=== PATIENT | female | born 1995 | race Two or more races ===

== ENCOUNTER 2025-02-24 12:47 | Observation (INO) | payer MEDICAID ==
--- NOTE | 2025-02-24 13:40 | DVH ---
BIOPHYSICAL PROFILE HISTORY: gdma2 TECHNIQUE: Multiple transabdominal real-time grayscale sonographic images through the gravid uterus of the fetus with duplex Doppler color flow and M-mode spectral analysis FINDINGS: BIOPHYSICAL PROFILE: breathing score: 2 movement score: 2 tone score: 2 Quantitative ZEKE score: 2 (ZEKE: 17.6 Cm.) Total score: 8 The cervix not well visualized. Single live fetus in cephalic presentation. heart rate 132 beats per minute. Posterior placenta without previa or abruption IMPRESSION: Biophysical profile score: 8
--- NOTE | 2025-02-25 13:50 | DVHDS2 ---
Physician Discharge Progress N Final Diagnosis: [id number] Operations or Procedures: Operations or Procedures nst reactive reviwed,sono Condition on Discharge: Good Disposition: Home Discharge Instructions: Diet: Regular Activity: No Restrictions, As Tolerated Medications: na Follow Up Care: Specialist: 3d Discharge Statement: "Patient was advised to return to the ER or call 911 if any headaches, dizziness, shortness of breath, chest pain, abdominal pain, bleeding, fevers, or worsening of medical condition. Patient was counseled about treatment plan, medications, possible side effects, patientverbalized understanding. All questions were answered to the best of my ability. This discharge took greater then 30 minutes in planning, reviewing documentati on, counseling the patient, and discussing with other team members." Visit Coding OBGYN Date of Service: Feb 24, 2025 Billing Provider: WILBER MOREJON DO ANCHOR TACKER Common Visit Codes: [id number] OBS CARE (HIGH) ANCHOR TACKER Procedure Codes: 41610-71- NON-STRESS TEST WILBER MOREJON DO Feb 25, 2025 13:50
== END 2025-02-24 14:03 | disposition home or self-care (01) ==
LOC: LDRP 12:47 → UNDOADMOB 12:47 → LDRP 12:56
PROVIDERS: ADMIT Obstetrics & Gynecology; ATTEND Obstetrics & Gynecology
DX: O24.419 Gestational diabetes mellitus in pregnancy, unspecified control (principal); Z3A.32 32 weeks gestation of pregnancy; Z79.899 Other long term (current) drug therapy
CPT/HCPCS: 59025; 76819; 81002; 82948; G0378

== ENCOUNTER 2025-02-28 20:02 | Observation (INO) | payer MEDICAID ==
--- NOTE | 2025-02-28 20:53 | DVH ---
BIOPHYSICAL PROFILE HISTORY: GDMA2 TECHNIQUE: Multiple transabdominal real-time grayscale sonographic images through the gravid uterus of the fetus with duplex Doppler color flow and M-mode spectral analysis FINDINGS: BIOPHYSICAL PROFILE: breathing score: 2 movement score: 2 tone score: 2 Quantitative ZEKE score: 2 (ZEKE: 17.53 Cm.) Total score: 8/8 The cervix 3.00 Single live fetus in vertex presentation. heart rate 160 beats per minute. Posterior Grade 2-3 placenta without previa or abruption Single live fetus at 32 weeks 4 days Biophysical profile score 8/8 corresponding to an RAGHU of 08/22/2024 IMPRESSION: 1. Biophysical profile score: 8/8
--- NOTE | 2025-03-01 05:27 | DVHDS2 ---
Physician Discharge Progress N Final Diagnosis: GDMA2 Operations or Procedures: Operations or Procedures NST/BPP ZEKE all WNL Condition on Discharge: Stable Disposition: Home Discharge Instructions: Diet: Consistent carbohydrate Activity: No Restrictions, As Tolerated Follow Up/Referral: as scheduled Medications: NA Follow Up Care: Discharge Statement: "Patient was advised to return to the ER or call 911 if any headaches, dizziness, shortness of breath, chest pain, abdominal pain, bleeding, fevers, or worsening of medical condition. Patient was counseled about treatment plan, medications, possible side effects, patientverbalized understanding. All questions were answered to the best of my ability. This discharge took greater then 30 minutes in planning, reviewing documentation, counseling the patient, and discussing with other team members." Visit Coding OBGYN Date of Service: Mar 01, 2025 Billing Provider: ARI JORGE DO EMPLOYMENT COORDINATOR Common Visit Codes: 99224-JVP/OBS SAME DATE (HIGH) EMPLOYMENT COORDINATOR Procedure Codes: 58924-53- NON-STRESS TEST ARI JORGE DO Mar 01, 2025 05:27
== END 2025-02-28 21:35 | disposition home or self-care (01) ==
LOC: LDRP 20:02
PROVIDERS: ADMIT Obstetrics & Gynecology; ATTEND Obstetrics & Gynecology
DX: O24.419 Gestational diabetes mellitus in pregnancy, unspecified control (principal); Z3A.32 32 weeks gestation of pregnancy; Z98.890 Other specified postprocedural states; Z79.899 Other long term (current) drug therapy
CPT/HCPCS: 59025; 76819; 81002; 82948; 82962; 94760; G0378

== ENCOUNTER 2025-03-03 11:37 | Observation (INO) | payer MEDICAID ==
[2025-03-03] MEDS ORDERED: PREN-96 PO (11:51)
[2025-03-03] MEDS ORDERED: ASPI81CH74 PO (12:44)
[2025-03-03] MEDS ORDERED: METF-370 PO (12:45)
--- NOTE | 2025-03-03 13:05 | DVH ---
BIOPHYSICAL PROFILE HISTORY: GDMA2 Comparison Study: US BIOPHYSICAL PROFILE on DOS: 02/28/25, US BIOPHYSICAL PROFILE on DOS: 02/24/25 TECHNIQUE: Multiple real-time grayscale sonographic images through the gravid uterus of the fetus wi th duplex Doppler color flow and M-mode spectral analysis FINDINGS: BIOPHYSICAL PROFILE: breathing score: 2 movement score: 2 tone score: 2 Quantitative ZEKE score: 2 (ZEKE: 16.6 Cm.) Total score: 8 The cervix is not visualized Single live fetus in cephalic presentation. heart rate 153 beats per minute. Grade 3, posterior placenta without previa or abruption IMPRESSION: Biophysical profile score: 8
--- NOTE | 2025-03-05 09:06 | DVHDS2 ---
Physician Discharge Progress N Final Diagnosis: gdm 33 wks Operations or Procedures: Operations or Procedures nst reactive reviwed,sono Condition on Discharge: Good Disposition: Home Discharge Instructions: Diet: Consistent carbohydrate Activity: No Restrictions, As Tolerated Medications: na Follow Up Care: Specialist: 3d Discharge Statement: "Patient was advised to return to the ER or call 911 if any headaches, dizziness, shortness of breath, chest pain, abdominal pain, bleeding, fevers, or worsening of medical condition. Patient was counseled about treatment plan, medications, possible side effects, patientverbalized understanding. All questions were answered to the best of my ability. This discharge took greater then 30 minutes in planning, reviewing documentation, counseling the patient, and discussing with other team members." Visit Coding OBGYN Date of Service: Mar 03, 2025 Billing Provider: WILBER MOREJON DO PUBLIC HEALTH NUTRITIONIST Common Visit Codes: 91453-[id number] OBS CARE (HIGH) PUBLIC HEALTH NUTRITIONIST Procedure Codes: 03475-87- NON-STRESS TEST WILBER MOREJON DO Mar 05, 2025 09:06
== END 2025-03-03 13:07 | disposition home or self-care (01) ==
LOC: LDRP 11:37
PROVIDERS: ADMIT Obstetrics & Gynecology; ATTEND Obstetrics & Gynecology
DX: O24.419 Gestational diabetes mellitus in pregnancy, unspecified control (principal); Z3A.33 33 weeks gestation of pregnancy; Z98.890 Other specified postprocedural states; Z79.899 Other long term (current) drug therapy
CPT/HCPCS: 59025; 76819; 81002; 82948; 82962; 94760; G0378

== ENCOUNTER 2025-03-08 11:55 | Observation (INO) | payer MEDICAID ==
[~2025-03-08 11:55] MED LIST: ASPI81CH74 PO; METF-370 PO; PREN-96 PO
--- NOTE | 2025-03-08 12:49 | DVH ---
CLINICAL HISTORY: Gestational diabetes. COMPARISON: US BIOPHYSICAL PROFILE on DOS: 03/03/25, US BIOPHYSICAL PROFILE on DOS: 02/28/25, US BIOPHY SICAL PROFILE on DOS: 02/24/25 TECHNIQUE: biophysical profile was performed. Transabdominal sonographic images of the fetus we re obtained. FINDINGS: The fetus is in cephalic position. heart rate measures 139 BPM. Amniotic fluid index measures 16.7 cm. The placenta is posterior in position without evidence of previa or abruption. BPP profile is an overall score of 8/8, with 2/2 points for breathing, with at least one episode of breathing over a 30 second duration during a 30 minute observation, 2/2 points for m ovements, with 3 or more discrete body or limb movements, 2/2 points for tone, with one or more episodes of extremity extension with return to flexion, or opening and closing of hand, and 2/ 2 points for amniotic fluid, with at least 1 pocket of amniotic fluid that measures 2 cm in 2 perpend icular planes. IMPRESSION: BPP score of 8/8.
--- NOTE | 2025-03-08 13:34 | DVHDS2 ---
Physician Discharge Progress N Final Diagnosis: testing for GDM, A2 Operations or Procedures: Operations or Procedures 29yo IUP@33.5wks VSS NST reactive (last 20 minutes) BPP 8/8 FKC/PTL precautions reviewed Dr. Morris consulted, agrees with POC. Other Interventions Other Interventions [facility] [address] [facility] [address] Ph: [phone] DIAGNOSTIC IMAGING Diagnostic Imaging Report : [id number] Signed PATIENT: DK SANCHEZ ACCT: [id number] UNIT: [id number] : 1995 LOC: [facility] ROOM / BED: [facility] / A AGE / SEX: 29 / F ADM STATUS: ADM IN SERVICE 120 ORDERING PHYSICIAN: LISSET MORALES CNM PROCEDURE(s): BPP - BIOPHYSICAL PROFILE REASON: GDMA2 ORDER NUMBER(s): [id number], ACCESSION NUMBER(s): [id number] CLINICAL HISTORY: Gestational diabetes. COMPARISON: US BIOPHYSICAL PROFILE on DOS: 03/03/25, US BIOPHYSICAL PROFILE on DOS: 02/28/25, US BIOPHYSICAL PROFILE on DOS: 02/24/25 TECHNIQUE: biophysical profile was performed. Transabdominal sonographic images of the fetus were obtained. FINDINGS: The fetus is in cephalic position. heart rate measures 139 BPM. Amniotic fluid index measures 16.7 cm. The placenta is posterior in position without evidence of previa or abruption. BPP profile is an overall score of 8/8, with 2/2 points for breathing, with at least one episode of breathing over a 30 second duration during a 30 minute observation, 2/2 points for movements, with 3 or more discrete body or limb movements, 2/2 points for tone, with one or more episodes of extremity extension with return to flexion, or opening and closing of hand, and 2/2 points for amniotic fluid, with at least 1 pocket of amniotic fluid that measures 2 cm in 2 perpendicular planes. IMPRESSION: BPP score of 8/8. ATED BY: JAVAN EDWARDS DO DICTATED DATE/TIME: 03/08/25 1247 SIGNED BY: JAVAN EDWARDS DO SIGNED DATE/TIME: 03/08/25 1247 CC: Condition on Discharge: Stable Disposition: Home Discharge Instructions: Diet: Consistent carbohydrate Activity: No Restrictions, As Tolerated Medications: see med list Follow Up Care: Specialist: f/u in 3 days Discharge Statement: "Patient was advised to return to the ER or call 911 if any headaches, dizziness, shortness of breath, chest pain, abdominal pain, bleeding, fevers, or worsening of medical condition. Patient was counseled about treatment plan, medications, possible side effects, patientverbalized understanding. All questions were answered to the best of my ability. This discharge took greater then 30 minutes in planning, reviewing documentation, counseling the patient, and discussing with other team members." Visit Coding OBGYN Date of Service: Mar 08, 2025 Billing Provider: LISSET MORALES CNM STONE LAYER Common Visit Codes: 59489-[id number] OBS CARE (HIGH) STONE LAYER Procedure Codes: 45575-37- NON-STRESS TEST LISSET MORALES CNM Mar 08, 2025 13:34
== END 2025-03-08 13:42 | disposition home or self-care (01) ==
LOC: LDRP 11:55
PROVIDERS: ADMIT Obstetrics & Gynecology; ATTEND Obstetrics & Gynecology
DX: O24.419 Gestational diabetes mellitus in pregnancy, unspecified control (principal); Z3A.33 33 weeks gestation of pregnancy; Z98.890 Other specified postprocedural states
CPT/HCPCS: 59025; 76819; 81002; 82948; 82962; 94760; G0378

== ENCOUNTER 2025-03-12 09:46 | Observation (INO) | payer MEDICAID ==
--- NOTE | 2025-03-12 10:31 | DVH ---
BIOPHYSICAL PROFILE HISTORY: GDMA2 Comparison Study: US BIOPHYSICAL PROFILE on DOS: 03/08/25, US BIOPHYSICAL PROFILE on DOS: 03/03/25, US BIOPHYSICAL PROFILE on DOS: 02/28/25, US BIOPHYSICAL PROFILE on DOS: 02/24/25 TECHNIQUE: Multiple real-time grayscale sonographic images through the gravid uterus of the fetus wi th duplex Doppler color flow and M-mode spectral analysis FINDINGS: BIOPHYSICAL PROFILE: breathing score: 2 movement score: 2 tone score: 2 Quantitative ZEKE score: 2 (ZEKE: 18 Cm.) Total score: 8 Single live fetus in cephalic presentation. heart rate 146 beats per minute. Posterior placenta without previa or abruption Biophysical profile score 8 of 8 IMPRESSION: 1. Biophysical profile score: 8 of 8
--- NOTE | 2025-03-13 08:26 | DVHDS2 ---
Physician Discharge Progress N Final Diagnosis: IUP @ 34.2wks and stable gdm Operations or Procedures: Operations or Procedures nst reactive reviwed,sono Condition on Discharge: Good Disposition: Home Discharge Instructions: Diet: Regular Activity: No Restrictions, As Tolerated Medications: na Follow Up Care: Specialist: 4d Discharge Statement: "Patient was advised to return to the ER or call 911 if any headaches, dizziness, shortness of breath, chest pain, abdominal pain, bleeding, fevers, or worsening of medical condition. Patient was counseled about treatment plan, medications, possible side effects, patientverbalized understanding. All questions were answered to the best of my ability. This discharge took greater then 30 minutes in planning, reviewing documentation, counseling the patient, and discussing with other team members." Visit Coding OBGYN Date of Service: Mar 12, 2025 Billing Provider: WILBER MOREJON DO GRAIN CLEANER AND TRANSFER OPERATOR Common Visit Codes: 97919-[id number] OBS CARE (HIGH) GRAIN CLEANER AND TRANSFER OPERATOR Procedure Codes: 70015-48- NON-STRESS TEST WILBER MOREJON DO Mar 13, 2025 08:26
== END 2025-03-12 11:12 | disposition home or self-care (01) ==
LOC: LDRP 09:46
PROVIDERS: ADMIT Obstetrics & Gynecology; ATTEND Obstetrics & Gynecology
DX: O24.419 Gestational diabetes mellitus in pregnancy, unspecified control (principal); Z3A.34 34 weeks gestation of pregnancy; Z98.890 Other specified postprocedural states
CPT/HCPCS: 59025; 76819; 81002; 82962; 94760; G0378

== ENCOUNTER 2025-03-15 07:15 | Observation (INO) | payer MEDICAID ==
--- NOTE | 2025-03-15 14:01 | DVH ---
BIOPHYSICAL PROFILE HISTORY: GDMA2 TECHNIQUE: Multiple transabdominal real-time grayscale sonographic images through the gravid uterus of the fetus with duplex Doppler color flow and M-mode spectral analysis FINDINGS: BIOPHYSICAL PROFILE: breathing score: 2 movement score: 2 tone score: 2 Quantitative ZEKE score: (ZEKE: 18.6 Cm.) Total score: 8 The cervix not well visualized. Single live fetus in cephalic presentation. heart rate 139 beats per minute. Grade 3 posterior placenta without previa or abruption IMPRESSION: Biophysical profile score: 8
--- NOTE | 2025-03-15 17:26 | DVHDS2 ---
Physician Discharge Progress N Final Diagnosis: testing for GDM, A2 Operations or Procedures: Operations or Procedures 29yo IUP@34.5wks VSS NST reactive FKC/PTL precautions reviewed Dr. Morris consulted, agrees with POC. Other Interventions Other Interventions [address] [address] Ph: [phone] DIAGNOSTIC IMAGING Diagnostic Imaging Report : [id number] Signed PATIENT: DK SANCHEZ ACCT: [id number] UNIT: [id number] : 1995 LOC: LD ROOM / BED: [facility] / A AGE / SEX: 29 / F ADM STATUS: ADM IN SERVICE 1311 ORDERING PHYSICIAN: LISSET MORALES CNM PROCEDURE(s): BPP - BIOPHYSICAL PROFILE REASON: GDMA2 ORDER NUMBER(s): [id number], ACCESSION NUMBER(s): [id number] BIOPHYSICAL PROFILE HISTORY: GDMA2 TECHNIQUE: Multiple transabdominal real-time grayscale sonographic images through the gravid uterus of the fetus with duplex Doppler color flow and M-mode spectral analysis FINDINGS: BIOPHYSICAL PROFILE: breathing score: 2 movement score: 2 tone score: 2 Quantitative ZEKE score: (ZEKE: 18.6 Cm.) Total score: 8 The cervix not well visualized. Single live fetus in cephalic presentation. heart rate 139 beats per minute. Grade 3 posterior placenta without previa or abruption IMPRESSION: Biophysical profile score: 8 ATED BY: PERI CLEMENTE MD DICTATED DATE/TIME: 03/15/25 1358 SIGNED BY: PERI CLEMENTE MD SIGNED DATE/TIME: 03/15/25 1358 CC: Condition on Discharge: Stable Disposition: Home Discharge Instructions: Diet: Consistent carbohydrate Activity: No Restrictions, As Tolerated Follow Up/Referral: as scheduled. Medications: see med list Follow Up Care: Specialist: f/u in 3 days Discharge Statement: "Patient was advised to return to the ER or call 911 if any headaches, dizziness, shortness of breath, chest pain, abdominal pain, bleeding, fevers, or worsening of medical condition. Patient was counseled about treatment plan, medications, possible side effects, patientverbalized understanding. All questions were answered to the best of my ability. This discharge took greater then 30 minutes in planning, reviewing documentation, counseling the patient, and discussing with other team members." Visit Coding OBGYN Date of Service: Mar 15, 2025 Billing Provider: LISSET MORALES CNM CHEMICAL DETECTION EXPERT Common Visit Codes: 60768-[id number] OBS CARE (HIGH) CHEMICAL DETECTION EXPERT Procedure Codes: 56911-07- NON-STRESS TEST LISSET MORALES CNM Mar 15, 2025 17:26
== END 2025-03-15 14:46 | disposition home or self-care (01) ==
LOC: UNDOADMOB 12:50 → LDRP 12:50
PROVIDERS: ADMIT Obstetrics & Gynecology; ATTEND Obstetrics & Gynecology
DX: O24.419 Gestational diabetes mellitus in pregnancy, unspecified control (principal); Z3A.34 34 weeks gestation of pregnancy; Z98.890 Other specified postprocedural states
CPT/HCPCS: 59025; 76819; 81002; 82948; 82962; 94760; G0378

== ENCOUNTER 2025-03-17 11:49 | Observation (INO) | payer MEDICAID ==
[2025-03-17 12:26] LABS: Hematocrit 30.7 % (36.0-46.0); Hemoglobin 10.4 g/dL (12.2-16.2); Mean Corpuscular Hemoglobin 28.2 pg (28.0-32.0); Mean Corpuscular Volume 83.4 fL (80.0-100.0); Nucleated Red Blood Cells % 0.0 %
--- NOTE | 2025-03-17 12:36 | DVH ---
BIOPHYSICAL PROFILE HISTORY: gdma2 TECHNIQUE: Multiple real-time grayscale sonographic images through the gravid uterus of the fetus wi th duplex Doppler color flow. FINDINGS: BIOPHYSICAL PROFILE: breathing score: 2 movement score: 2 tone score: 2 Quantitative ZEKE score: 2 Total score: 8 out of 8 The cervix 4.7 Single live intrauterine . Cephalic lie. Placenta posteriorly positioned. ZEKE 18.8 cm IMPRESSION: Biophysical profile score: 8 out of 8
[2025-03-17 12:44] LABS: INR 0.92 (0.9-1.15); Partial Thromboplastin Time 25.0 SEC (24.5-34.5); Prothrombin Time 9.8 sec (9.3-11.8)
[2025-03-17 12:54] LABS: Alanine Aminotransferase 16 U/L (7-40); Albumin 3.7 g/dL (3.2-4.8); Anion Gap 9 (5-15); BUN/Creatinine Ratio 12.5 (10.0-20.0); Bilirubin, Total 0.3 mg/dL (0.2-1.0); Carbon Dioxide 22 mmol/L (20-31); Potassium 3.8 mmol/L (3.5-5.1); Sodium 138 mmol/L (136-145); Total Protein 6.5 g/dL (5.7-8.2)
[2025-03-17 12:56] LABS: Alkaline Phosphatase 161 U/L (46-116); Blood Urea Nitrogen 6 mg/dL (9-23); Calcium 8.6 mg/dL (8.7-10.4); Chloride 107 mmol/L (98-107); Glucose 112 mg/dL (74-106)
[2025-03-17 13:11] LABS: Uric Acid 3.8 mg/dL (3.1-7.8)
[2025-03-17 13:16] LABS: Protein, Urine 20.8 mg/dL (1-14)
[2025-03-17 13:18] LABS: Urine Protein, UAD Negative (Negative)
--- NOTE | 2025-03-17 14:38 | DVHDS2 ---
Physician Discharge Progress N Final Diagnosis: pih 35wks Operations or Procedures: Operations or Procedures nst reactive reviwed,sono Condition on Discharge: Good Disposition: Home Discharge Instructions: Diet: Consistent carbohydrate Activity: Light activity Medications: na Follow Up Care: Specialist: 1w Discharge Statement: "Patient was advised to return to the ER or call 911 if any headaches, dizziness, shortness of breath, chest pain, abdominal pain, bleeding, fevers, or worsening of medical condition. Patient was counseled about treatment plan, medications, possible side effects, patientverbalized understanding. All questions were answered to the best of my ability. This discharge took greater then 30 minutes in planning, reviewing documenta tion, counseling the patient, and discussing with other team members." Visit Coding OBGYN Date of Service: Mar 17, 2025 Billing Provider: WILBER MOREJON DO ARTS MANAGER Common Visit Codes: 91501-[id number] OBS CARE (HIGH) ARTS MANAGER Procedure Codes: 80130-51- NON-STRESS TEST WILBER MOREJON DO Mar 17, 2025 14:38
== END 2025-03-17 13:44 | disposition home or self-care (01) ==
LOC: LDRP 11:49
PROVIDERS: ADMIT Obstetrics & Gynecology; ATTEND Obstetrics & Gynecology
DX: O13.3 Gestational [pregnancy-induced] hypertension without significant proteinuria, third trimester (principal); Z3A.35 35 weeks gestation of pregnancy; Z79.899 Other long term (current) drug therapy; Z98.890 Other specified postprocedural states
CPT/HCPCS: 36415; 59025; 76819; 80053; 81001; 81002; 82570; 82948; 82962; 84156; 84550; 85025; 85610; 85730; 94760; G0378

== ENCOUNTER 2025-03-18 14:41 | Observation (INO) | payer MEDICAID ==
--- NOTE | 2025-03-22 12:10 | DVH ---
BIOPHYSICAL PROFILE HISTORY: GDMA2 TECHNIQUE: Multiple transabdominal real-time grayscale sonographic images through the gravid uterus of the fetus with duplex Doppler color flow and M-mode spectral analysis FINDINGS: BIOPHYSICAL PROFILE: breathing score: 2 movement score: 2 tone score: 2 Quantitative ZEKE score: 2 (ZEKE: 19 Cm.) Total score: 8 The cervix not well visualized. Single live fetus in cephalic presentation. heart rate 143 beats per minute. Grade 3 posterior placenta without previa or abruption IMPRESSION: Biophysical profile score: 8
--- NOTE | 2025-03-23 23:03 | DVHDS2 ---
Physician Discharge Progress N Final Diagnosis: gdma2 35 wks Operations or Procedures: Operations or Procedures nst reactive reviwed,sono Condition on Discharge: Good Disposition: Home Discharge Instructions: Diet: Consistent carbohydrate Activity: No Restrictions, As Tolerated Medications: na Follow Up Care: Specialist: 3d Discharge Statement: "Patient was advised to return to the ER or call 911 if any headaches, dizziness, shortness of breath, chest pain, abdominal pain, bleeding, fevers, or worsening of medical condition. Patient was counseled about treatment plan, medications, possible side effects, patientverbalized understanding. All questions were answered to the best of my ability. This discharge took greater then 30 minutes in planning, reviewing documentation, counseling the patient, and discussing with other team members." Visit Coding OBGYN Date of Service: Mar 22, 2025 Billing Provider: WILBER MOREJON DO JIG BORE OPERATOR Common Visit Codes: 70880-ZLOVDMD INP/OBS CARE (HIGH) JIG BORE OPERATOR Procedure Codes: 07019-82- NON-STRESS TEST WILBER MOREJON DO Mar 23, 2025 23:03
== END 2025-03-22 12:35 | disposition home or self-care (01) ==
LOC: LDRP 03-22 11:00
PROVIDERS: ADMIT Obstetrics & Gynecology; ATTEND Obstetrics & Gynecology
DX: O24.419 Gestational diabetes mellitus in pregnancy, unspecified control (principal); Z3A.35 35 weeks gestation of pregnancy; Z98.890 Other specified postprocedural states
CPT/HCPCS: 59025; 76819; 81002; 82948; 82962; 94760; G0378

== ENCOUNTER → 2025-03-24 | Outpatient (CLI) | payer MEDICAID ==
[2025-03-24 12:48] LABS: Hematocrit 28.9 % (36.0-46.0); Hemoglobin 9.7 g/dL (12.2-16.2); Mean Corpuscular Hemoglobin 28.0 pg (28.0-32.0); Mean Corpuscular Volume 82.8 fL (80.0-100.0); Nucleated Red Blood Cells % 0.0 %
[2025-03-26 00:07] LABS: Chlamydia Trachomatis, NAA Negative (Negative); Neisseria gonorrhoeae, NAA Negative (Negative)
== END | disposition home or self-care (01) ==
LOC: LAB 11:28
PROVIDERS: ATTEND Obstetrics & Gynecology
DX: Z34.80 Encounter for supervision of other normal pregnancy, unspecified trimester (principal); Z3A.00 Weeks of gestation of pregnancy not specified
CPT/HCPCS: 36415; 85025; 86780

== ENCOUNTER 2025-03-25 07:40 | Observation (INO) | payer MEDICAID ==
--- NOTE | 2025-03-25 08:18 | DVH ---
BIOPHYSICAL PROFILE HISTORY: GDMA2 Comparison Study: US BIOPHYSICAL PROFILE on DOS: 03/22/25, US BIOPHYSICAL PROFILE on DOS: 03/17/25, US BI OPHYSICAL PROFILE on DOS: 03/15/25, US BIOPHYSICAL PROFILE on DOS: 03/12/25, US BIOPHYSICAL PROFILE on D OS: 03/08/25 TECHNIQUE: Multiple real-time grayscale sonographic images through the gravid uterus of the fetus wi th duplex Doppler color flow and M-mode spectral analysis FINDINGS: BIOPHYSICAL PROFILE: breathing score: 2 movement score: 2 tone score: 2 Quantitative ZEKE score: 2 (ZEKE: 18.6 Cm.) Total score: 8 The cervix is not visualized Single live fetus in cephalic presentation. heart rate 144 beats per minute. Grade 3, posterior placenta without previa or abruption IMPRESSION: Biophysical profile score: 8
--- NOTE | 2025-03-25 12:12 | DVHDS2 ---
Physician Discharge Progress N Final Diagnosis: gdm 36wks Operations or Procedures: Operations or Procedures nst reactive reviwed,sono Condition on Discharge: Good Disposition: Home Discharge Instructions: Diet: Consistent carbohydrate Activity: No Restrictions, As Tolerated Medications: na Follow Up Care: Specialist: 1w Discharge Statement: "Patient was advised to return to the ER or call 911 if any headaches, dizziness, shortness of breath, chest pain, abdominal pain, bleeding, fevers, or worsening of medical condition. Patient was counseled about treatment plan, medications, possible side effects, patientverbalized understanding. All questions were answered to the best of my ability. This discharge took greater then 30 minutes in planning, reviewing documentation, counseling the patient, and discussing with other team members." Visit Coding OBGYN Date of Service: Mar 25, 2025 Billing Provider: WILBER MOREJON DO DRILLING MACHINE OPERATOR Common Visit Codes: 65179-AMNICZH OBS CARE (HIGH) DRILLING MACHINE OPERATOR Procedure Codes: 59218-57- NON-STRESS TEST WILBER MOREJON DO Mar 25, 2025 12:12
== END 2025-03-25 08:50 | disposition home or self-care (01) ==
LOC: UNDOADMOB 07:40 → LDRP 07:40
PROVIDERS: ADMIT Obstetrics & Gynecology; ATTEND Obstetrics & Gynecology
DX: O24.419 Gestational diabetes mellitus in pregnancy, unspecified control (principal); Z3A.36 36 weeks gestation of pregnancy; Z98.890 Other specified postprocedural states
CPT/HCPCS: 59025; 76819; 81002; 82948; 94760; G0378

== ENCOUNTER 2025-03-29 06:41 | Observation (INO) | payer MEDICAID ==
--- NOTE | 2025-03-29 12:19 | DVH ---
BIOPHYSICAL PROFILE HISTORY: GDMA2 TECHNIQUE: Multiple transabdominal real-time grayscale sonographic images through the gravid uterus of the fetus with duplex Doppler color flow and M-mode spectral analysis FINDINGS: BIOPHYSICAL PROFILE: breathing score: 2 movement score: 2 tone score: 2 Quantitative ZEKE score: 2 (ZEKE: 18.5 Cm.) Total score: 8 The cervix not well visualized. Single live fetus in cephalic presentation. heart rate 147 beats per minute. Grade 3 posterior placenta without previa or abruption IMPRESSION: Biophysical profile score: 8
--- NOTE | 2025-03-29 16:35 | DVHDS2 ---
Physician Discharge Progress N Final Diagnosis: testing for GDM, A2 Operations or Procedures: Operations or Procedures 29yo IUP@36.5wks VSS NST reactive per RN FKC/PTL/PreE precautions reviewed Dr. Morris consulted, agrees with POC. Other Interventions Other Interventions [address] [address] Ph: [phone] DIAGNOSTIC IMAGING Diagnostic Imaging Report : [id number] Signed PATIENT: DK SANCHEZ ACCT: [id number] UNIT: [id number] : 1995 LOC: [facility] ROOM / BED: TRIAGE1 / A AGE / SEX: 29 / F ADM STATUS: ADM IN SERVICE 1101 ORDERING PHYSICIAN: LISSET MORALES CNM PROCEDURE(s): BPP - BIOPHYSICAL PROFILE REASON: GDMA2 ORDER NUMBER(s): [id number], ACCESSION NUMBER(s): [id number] BIOPHYSICAL PROFILE HISTORY: GDMA2 TECHNIQUE: Multiple transabdominal real-time grayscale sonographic images through the gravid uterus of the fetus with duplex Doppler color flow and M-mode spectral analysis FINDINGS: BIOPHYSICAL PROFILE: breathing score: 2 movement score: 2 tone score: 2 Quantitative ZEKE score: 2 (ZEKE: 18.5 Cm.) Total score: 8 The cervix not well visualized. Single live fetus in cephalic presentation. heart rate 147 beats per minute. Grade 3 posterior placenta without previa or abruption IMPRESSION: Biophysical profile score: 8 ATED BY: PERI CLEMENTE MD DICTATED DATE/TIME: 03/29/251215 SIGNED BY: PERI CLEMENTE MD SIGNED DATE/TIME: 03/29/251215 CC: Condition on Discharge: Stable Disposition: Home Discharge Instructions: Diet: Consistent carbohydrate Activity: No Restrictions, As Tolerated Medications: see med list Follow Up Care: Specialist: f/u in 3 days Discharge Statement: "Patient was advised to return to the ER or call 911 if any headaches, dizziness, shortness of breath, chest pain, abdominal pain, bleeding, fevers, or worsening of medical condition. Patient was counseled about treatment plan, medications, possible side effects, patientverbalized understanding. All questions were answered to the best of my ability. This discharge took greater then 30 minutes in planning, reviewing documentation, counseling the patient, and discussing with other team members." Visit Coding OBGYN Date of Service: Mar 29, 2025 Billing Provider: LISSET MORALES CNM RESIDENTIAL BUILDING INSPECTOR Common Visit Codes: 17939-[id number] OBS CARE (HIGH) RESIDENTIAL BUILDING INSPECTOR Procedure Codes: 24719-80- NON-STRESS TEST LISSET MORALES CNM Mar 29, 2025 16:35
== END 2025-03-29 12:28 | disposition home or self-care (01) ==
LOC: UNDOADMOB 10:54 → LDRP 10:54 → UNDODISOB 12:28
PROVIDERS: ADMIT Obstetrics & Gynecology; ATTEND Obstetrics & Gynecology
DX: O24.419 Gestational diabetes mellitus in pregnancy, unspecified control (principal); Z3A.36 36 weeks gestation of pregnancy; Z98.890 Other specified postprocedural states
CPT/HCPCS: 59025; 76819; 81002; 82948; G0378

== ENCOUNTER 2025-04-02 05:13 | Observation (INO) | payer MEDICAID ==
--- NOTE | 2025-04-02 11:30 | DVH ---
BIOPHYSICAL PROFILE HISTORY: GDMA2 TECHNIQUE: Multiple transabdominal real-time grayscale sonographic images through the gravid uterus o f the fetus with duplex doppler color flow and M-mode spectral analysis FINDINGS: BIOPHYSICAL PROFILE: breathing score: 2 movement score: 2 tone score: 2 Quantitative ZEKE score: 2 (ZEKE: 14.2 cm.) Total score: 8/8 Single live fetus in cephalic presentation. heart rate 148 beats per minute. Posterior placenta without previa or abruption Biophysical profile score 8/8 corresponding to an RAGHU of 03/29/25 IMPRESSION: Biophysical profile score: 8/8
--- NOTE | 2025-04-02 15:07 | DVHDS2 ---
Physician Discharge Progress N Final Diagnosis: GDM Operations or Procedures: Operations or Procedures NST/BPP ZEKE Condition on Discharge: Stable Disposition: Home Discharge Instructions: Diet: Consistent carbohydrate Activity: No Restrictions, As Tolerated Follow Up/Referral: as scheduled Medications: N/A Follow Up Care: Discharge Statement: "Patient was advised to return to the ER or call 911 if any headaches, dizziness, shortness of breath, chest pain, abdominal pain, bleeding, fevers, or worsening of medical condition. Patient was counseled about treatment plan, medications, possible side effects, patientverbalized understanding. All questions were answered to the best of my ability. This discharge took greater then 30 minutes in planning, reviewing documentation, counseling the patient, and discussing with other team members." Visit Coding OBGYN Date of Service: Apr 02, 2025 Billing Provider: ARI JORGE DO CARDIOLOGY SPECIALIST Common Visit Codes: 63564-PJD/OBS SAME DATE (MOD) CARDIOLOGY SPECIALIST Procedure Codes: 54322-89- NON-STRESS TEST ARI JORGE DO Apr 02, 2025 15:07
== END 2025-04-02 12:34 | disposition home or self-care (01) ==
LOC: LDRP 10:43
PROVIDERS: ADMIT Obstetrics & Gynecology; ATTEND Obstetrics & Gynecology
DX: O24.419 Gestational diabetes mellitus in pregnancy, unspecified control (principal); Z3A.37 37 weeks gestation of pregnancy; Z98.890 Other specified postprocedural states
CPT/HCPCS: 59025; 76819; 81002; 82948; 82962; G0378

== ENCOUNTER 2025-04-04 07:34 | Observation (INO) | payer MEDICAID ==
--- NOTE | 2025-04-04 13:25 | DVH ---
BIOPHYSICAL PROFILE HISTORY: GDMA2 Comparison Study: US BIOPHYSICAL PROFILE on DOS: 04/02/25, US BIOPHYSICAL PROFILE on DOS: 03/29/25, US BIOPHYSICAL PROFILE on DOS: 03/25/25, US BIOPHYSICAL PROFILE on DOS: 03/22/25, US BIOPHYSICAL PROFILE on DOS: 03/17/25 TECHNIQUE: Multiple real-time grayscale sonographic images through the gravid uterus of the fetus wi th duplex Doppler color flow and M-mode spectral analysis FINDINGS: BIOPHYSICAL PROFILE: breathing score: 2 movement score: 2 tone score: 2 Quantitative ZEKE score: 2 (ZEKE: 14 Cm.) Total score: 8 The cervix is not visualized Single live fetus in cephalic presentation. heart rate 130 beats per minute. Posterior placenta without previa or abruption IMPRESSION: Biophysical profile score: 8
--- NOTE | 2025-04-04 16:59 | DVHDS2 ---
Discharge Summary Date of Admission Apr 04, 2025 at 12:47 Date of Discharge: Apr 04, 2025 Admitting Diagnosis 37+ weeks here for GDM A2 NST BPP performed both reassuring. Wounds: None Labs/Diagnostic Data: Laboratory Results Test 04/04/25 13:17 POC Glucose 101 mg/dl (70-106) Brief Hx & Hospital Course: Patient here for routine monitoring 37+ week NST BPP performed reassuring Consults/Reason for consult None Operations or Procedures NST BPP Condition at Discharge: Good Final Diagnosis/Problems List 37+ week GDM A2 reassuring Discharge Disposition: Home Discharge Instruct/Medications Diet: Consistent carbohydrate Activity: Light activity (Kick counts labor precautions) Follow Up/Referral: As scheduled routine monitoring Medications: Resume home meds Scheduled Aspirin (Aspirin 81 Low Dose), 81 MG PO DAILY, (Reported) Metformin Hydrochloride (Metformin Hcl), 1,000 MG PO HS, (Reported) Vit W/ Ferrous Fumara ( One Daily), 1 TAB PO DAILY, (Reported) Discharge Statement: "Patient was advised to return to the ER or call 911 if any headaches, dizziness, shortness of breath, chest pain, abdominal pain, bleeding, fevers, or worsening of medical condition. Patient was counseled about treatment plan, medications, possible side effects, patientverbalized understanding. All questions were answered to the best of my ability. This discharge took greater then 30 minutes in planning, reviewing documentation, counseling the patient, and discussing with other team members." ASSESSMENT ASSESSMENT Assessment Visit Coding OBGYN Date of Service: Apr 04, 2025 Billing Provider: MARGRET THAO DO COMMERCIAL DRIVER'S LICENSE DRIVER Common Visit Codes: 29940-YAD/OBS SAME DATE (LOW), 37907-PCB/OBS SAME DATE (MOD), 82138-ZNO/OBS SAME DATE (HIGH) COMMERCIAL DRIVER'S LICENSE DRIVER Procedure Codes: 64404-91- NON-STRESS TEST MARGRET THAO DO Apr 04, 2025 16:59
== END 2025-04-04 13:49 | disposition home or self-care (01) ==
LOC: LDRP 12:47
PROVIDERS: ADMIT Obstetrics & Gynecology; ATTEND Obstetrics & Gynecology
DX: O24.419 Gestational diabetes mellitus in pregnancy, unspecified control (principal); Z3A.37 37 weeks gestation of pregnancy; Z98.890 Other specified postprocedural states
CPT/HCPCS: 59025; 76819; 81002; 82948; 82962; 94760; G0378

== ENCOUNTER 2025-04-07 04:03 | Observation (INO) | payer MEDICAID ==
--- NOTE | 2025-04-07 13:34 | DVH ---
BIOPHYSICAL PROFILE HISTORY: GDMA2 Comparison Study: US BIOPHYSICAL PROFILE on DOS: 04/04/25, US BIOPHYSICAL PROFILE on DOS: 04/02/25, US BIOPHYSICAL PROFILE on DOS: 03/29/25, US BIOPHYSICAL PROFILE on DOS: 03/25/25, US BIOPHYSICAL PROFILE o n DOS: 03/22/25 TECHNIQUE: Multiple real-time grayscale sonographic images through the gravid uterus of the fetus with duplex D oppler color flow and M-mode spectral analysis FINDINGS: BIOPHYSICAL PROFILE: breathing score: 2 movement score: 2 tone score: 2 Quantitative ZEKE score: 2 (ZEKE: 14.7 Cm.) Total score: 8 The cervix is not visualized Single live fetus in cephalic presentation. heart rate 145 beats per minute. Posterior placenta without previa or abruption IMPRESSION: Biophysical profile score: 8
--- NOTE | 2025-04-08 04:13 | DVHDS2 ---
Physician Discharge Progress N Final Diagnosis: GDM 38WKS Operations or Procedures: Operations or Procedures NST REACTIVE REVIWED,SONO Condition on Discharge: Good Disposition: Home Discharge Instructions: Diet: Consistent carbohydrate Activity: No Restrictions, As Tolerated Medications: NA Follow Up Care: Specialist: 3D Discharge Statement: "Patient was advised to return to the ER or call 911 if any headaches, dizziness, shortness of breath, chest pain, abdominal pain, bleeding, fevers, or worsening of medical condition. Patient was counseled about treatment plan, medications, possible side effects, patientverbalized understanding. All questions were answered to the best of my ability. This discharge took greater then 30 minutes in planning, reviewing documentation, counseling the patient, and discussing with other team members." Visit Coding OBGYN Date of Service: Apr 07, 2025 Billing Provider: WILBER MOREJON DO HOSPITAL CLEANER Common Visit Codes: [id number] OBS CARE (HIGH) HOSPITAL CLEANER Procedure Codes: 34006-79- NON-STRESS TEST WILBER MOREJON DO Apr 08, 2025 04:13
== END 2025-04-07 14:01 | disposition home or self-care (01) ==
LOC: LDRP 12:39 → UNDOADMOB 12:39 → LDRP 12:45
PROVIDERS: ADMIT Obstetrics & Gynecology; ATTEND Obstetrics & Gynecology
DX: O24.419 Gestational diabetes mellitus in pregnancy, unspecified control (principal); Z3A.38 38 weeks gestation of pregnancy
CPT/HCPCS: 59025; 76819; 81002; 82948; 82962; G0378

== ENCOUNTER 2025-04-11 12:44 | Observation (INO) | payer MEDICAID ==
--- NOTE | 2025-04-11 13:53 | DVH ---
BIOPHYSICAL PROFILE HISTORY: GDMA2 Comparison Study: US BIOPHYSICAL PROFILE on DOS: 04/07/25, US BIOPHYSICAL PROFILE on DOS: 04/04/25, US BIOPHYSICAL PROFILE on DOS: 04/02/25, US BIOPHYSICAL PROFILE on DOS: 03/29/25, US BIOPHYSICAL PROFILE o n DOS: 03/25/25 TECHNIQUE: Multiple real-time grayscale sonographic images through the gravid uterus of the fetus wi th duplex Doppler color flow and M-mode spectral analysis FINDINGS: BIOPHYSICAL PROFILE: breathing score: 2 movement score: 2 tone score: 2 Quantitative ZEKE score: 2 (ZEKE: 13.6 Cm.) Total score: 8 The cervix is not visualized Single live fetus in cephalic presentation. heart rate 158 beats per minute. Posterior placenta without previa or abruption IMPRESSION: Biophysical profile score: 8
== END 2025-04-11 13:54 | disposition home or self-care (01) ==
LOC: LDRP 12:44
PROVIDERS: ADMIT Obstetrics & Gynecology; ATTEND Obstetrics & Gynecology
DX: O24.419 Gestational diabetes mellitus in pregnancy, unspecified control (principal); Z3A.38 38 weeks gestation of pregnancy; Z98.890 Other specified postprocedural states
CPT/HCPCS: 59025; 76819; 81002; 82948; 82962; 94760; G0378

== ENCOUNTER 2025-04-13 06:33 | Observation (INO) | payer MEDICAID ==
--- NOTE | 2025-04-13 12:06 | DVH ---
BIOPHYSICAL PROFILE HISTORY: GDMA2 TECHNIQUE: Multiple transabdominal real-time grayscale sonographic images through the gravid uterus o f the fetus with duplex doppler color flow and M-mode spectral analysis FINDINGS: BIOPHYSICAL PROFILE: breathing score: 2 movement score: 2 tone score: 2 Quantitative ZEKE score: 2 (ZEKE: 20.6 cm.) Total score: 8/8 Single live fetus in Cephalic presentation. heart rate 141 beats per minute. Grade 3 posterior placenta without previa or abruption Biophysical profile score 8/8 corresponding to an RAGHU of 04/21/25 IMPRESSION: Biophysical profile score: 8/8
--- NOTE | 2025-04-13 13:28 | DVHDS2 ---
Physician Discharge Progress N Final Diagnosis: gdm 38wk macrosomia Operations or Procedures: Operations or Procedures nst reactive reviwed,sono Condition on Discharge: Good Disposition: Home Discharge Instructions: Diet: Consistent carbohydrate Activity: Light activity Medications: na Follow Up Care: Specialist: 2d for pcs Discharge Statement: "Patient was advised to return to the ER or call 911 if any headaches, dizziness, shortness of breath, chest pain, abdominal pain, bleeding, fevers, or worsening of medical condition. Patient was counseled about treatment plan, medications, possible side effects, patientverbalized understanding. All questions were answered to the best of my ability. This discharge took greater then 30 minutes in planning, reviewing documentation, counseling the patient, and discussing with other team members." Visit Coding OBGYN Date of Service: Apr 13, 2025 Billing Provider: WILBER MOREJON DO HOSPICE REGISTERED NURSE Common Visit Codes: [id number] OBS CARE (HIGH) HOSPICE REGISTERED NURSE Procedure Codes: 83018-23- NON-STRESS TEST WILBER MOREJON DO Apr 13, 2025 13:28
== END 2025-04-13 12:45 | disposition home or self-care (01) ==
LOC: PREOBSVTOIN 06:33 → LDRP 10:13
PROVIDERS: ADMIT Obstetrics & Gynecology; ATTEND Obstetrics & Gynecology
DX: O24.419 Gestational diabetes mellitus in pregnancy, unspecified control (principal); O36.63X0 Maternal care for excessive fetal growth, third trimester, not applicable or unspecified; Z3A.38 38 weeks gestation of pregnancy; Z98.890 Other specified postprocedural states
CPT/HCPCS: 59025; 76819; 81002; 82948; 82962; 94760; G0378

== ENCOUNTER 2025-04-14 10:22 | Inpatient (IN) | payer MEDICAID ==
[2025-04-13 12:42] LABS: Hematocrit 29.7 % (36.0-46.0); Hemoglobin 9.8 g/dL (12.2-16.2); Mean Corpuscular Hemoglobin 26.7 pg (28.0-32.0); Mean Corpuscular Volume 80.7 fL (80.0-100.0); Nucleated Red Blood Cells % 0.0 %
[2025-04-13 12:50] LABS: Alanine Aminotransferase 12 U/L (7-40); Albumin 3.7 g/dL (3.2-4.8); Anion Gap 9 (5-15); Bilirubin, Total 0.4 mg/dL (0.2-1.0); Carbon Dioxide 24 mmol/L (20-31); Chloride 107 mmol/L (98-107); Potassium 4.1 mmol/L (3.5-5.1); Sodium 140 mmol/L (136-145); Total Protein 6.6 g/dL (5.7-8.2)
[2025-04-13 12:51] LABS: Alkaline Phosphatase 190 U/L (46-116); BUN/Creatinine Ratio 10.6 (10.0-20.0); Blood Urea Nitrogen < 5 mg/dL (9-23); Calcium 8.6 mg/dL (8.7-10.4); Glucose 73 mg/dL (74-106)
[2025-04-13 13:04] LABS: INR 0.9 (0.9-1.15); Partial Thromboplastin Time 24.3 SEC (24.5-34.5); Prothrombin Time 9.6 sec (9.3-11.8)
[2025-04-13 13:05] LABS: Amphetamine Screen, Urine Neg (NEGATIVE); Barbiturate Scree,Urine Neg (NEGATIVE); Benzodiazephine Screen, Urine Neg (NEGATIVE); Cannabinoid Screen, Urine Neg (NEGATIVE); Cocaine Screen, Urine Neg (NEGATIVE); Opiate Scree,Urine Neg (NEGATIVE); Phencyclidine Screen, Urine Neg (NEGATIVE)
[2025-04-13 13:10] LABS: Urine Protein, UAD Negative (Negative)
[~2025-04-14] VITALS: Ht 170.2 cm; Wt 99.8 kg
[~2025-04-14 10:22] MED LIST changes: -ASPI81CH74 PO
--- NOTE | 2025-04-14 18:29 | DVHHP ---
ADMIT DATE: 04/15/2025 CHIEF COMPLAINT: Desires primary with bilateral tubal ligation. HISTORY OF PRESENT ILLNESS: The patient is a 29-year-old 3, para 2 with EDC of 04/21, estimated gestational age of 39 weeks, admitted for primary with bilateral tubal ligation. The patient has diabetes, GDMA2. Estimated weight is approximately 9 pounds. Options discussed with the patient. The patient was informed about the possibility of shoulder dystocia. The patient wished to proceed with primary . She also wants bilateral tubal ligation. PAST MEDICAL HISTORY: GDM. PAST SURGICAL HISTORY: None. SOCIAL HISTORY: None. FAMILY HISTORY: None. OBSTETRIC AND GYNECOLOGIC HISTORY: Two normal vaginal deliveries. ALLERGIES: No known drug allergies. REVIEW OF SYSTEMS: Consistent with HPI. PHYSICAL EXAMINATION: VITAL SIGNS: Stable, afebrile. HEENT: Within normal limits. CARDIOVASCULAR: Regular rate and rhythm. LUNGS: Clear to auscultation. BREASTS: Symmetrical, no masses. ABDOMEN: Positive heart. PELVIC: 1 cm. Estimated weight 9 pounds. EXTREMITIES: No clubbing, cyanosis or edema. IMPRESSION: * Intrauterine at 39 weeks. * Macrosomia. * Desires primary with bilateral tubal ligation. PLAN: Primary with BTL. Informed consent obtained. Risks and complications of surgery including infection, bleeding, hematoma formation, injury to bowel or bladder, surrounding organ, possibility of DVT, pulmonary embolism and risks of anesthesia were discussed with the patient. Options reviewed. Failure rate with this procedure discussed with the patient. The patient wishes to proceed with primary with bilateral tubal ligation due to possibility of macrosomia and shoulder dystocia. The patient has chosen to proceed with primary . DO LOS Manuel/ARMIN TID: [id number] RECEIPT: [id number]
[2025-04-15] VITALS (8 sets, daily range): BP systolic 115–138; BP diastolic 66–86; PULSE 60–115; RESP 16–20; TEMP 97.9–98.4; O2SAT 94–99
[2025-04-15] MEDS: LACTATED RINGER'S 1,000 ML IV ONE (05:16)
[2025-04-15] MEDS: ceFAZolin 2 GM/D5W50ml 50 ML IV ONE (06:39)
[2025-04-15] MEDS ORDERED: MORPHINE SULF PF 5 MG/10 ML VIAL ONE (06:55)
[2025-04-15] MEDS ORDERED: PROPOFOL 10 MG/ML 20 ML IV ONE ×2 (07:20→07:29)
[2025-04-15] MEDS ORDERED: fentaNYL CITRATE 5 ML ONE (07:21)
[2025-04-15] MEDS ORDERED: MIDAZOLAM HCL 2MG/2ML 2ml VIAL (1mg/ml) ONE (07:34)
[2025-04-15] MEDS ORDERED: HYDROmorphone HCL 2 MG/ML VL/or syr ONE (07:34)
[2025-04-15] MEDS ORDERED: ONDANSETRON HCL 4 MG/2 ML VIAL IV PRN (08:00)
--- NOTE | 2025-04-15 08:25 | DVHOP2 ---
Operative Report DATE OF OPERATION: 04/15/25 PREOPERATIVE DIAGNOSES: 1. Term , desires primary section.macrosomia,gdma2,morbid obesity 2. Desires bilateral tubal ligation POSTOPERATIVE DIAGNOSES: 1. same 2. Desires bilateral tubal ligation PROCEDURES: primary low transverese section with bilateral tubal ligation via Filschie Clips SURGEON: Kait Morris D.O./moises ANESTHESIOLOGIST: TYPE OF ANESTHESIA : general ESTIMATED BLOOD LOSS: 800 mL CONSENT: The patient was informed of the risks and benefits of the procedure. These include but are not limited to , complications of anesthesia, postoperative infection, incomplete relief of symptoms, recurrence of symptoms, damage to blood vessels, nerves and tendons, deep venous thrombosis, pulmonary e mbolism and possible need for repeat surgery in the future. Surgery was opted. FINDINGS: Baby [b] with apgars and . Grossly normal appearing tubes and ovaries. TISSUE TO PATHOLOGY: Placenta. PROCEDURE IN DETAIL: The patient was taken to the operating room where she was placed under general anesthesia. She previous to anesthesia prepped and draped in the usual sterile manner in supine position with a leftward tilt. A Pfannenstiel skin incision was then made 2 cm above the symphysis pubis. This incision was carried to the underlying layer of fascia. The fascia was nicked in the midline and the incision was extended laterally. The superior aspect of the fascial incision was grasped and elevated. Underlying rectus muscle was dissected off bluntly. The same procedure was done to the inferior aspect of the fascial incision. The rectus muscles were then in the midline. Peritoneum was identified and entered. Peritoneal incision was extended superiorly and inferiorly with good visualization of the bladder. Bladder blade was inserted. Vesicouterine peritoneum was identified and entered. Lower uterine segment was incised in a transverse fashion. The infant was delivered from vertex presentation. The was baby [b] with Apgars of and . Placenta was then removed manually. Uterus was exteriorized and cleared off all clots and debris. Uterine incision was repaired using 0 Vicryl in a double- layered fashion. No bleeding was noted. Bilateral tubal ligation was then performed using Vargas. Placed in the ampullary region and identifying the fimbria distally. The isthmic portion of the right tube was clipped using Filschie Clip. The same procedure was done on the opposite side. No bleeding was noted. Peritoneum was closed using 0 Vicryl, fascia was closed using 0 Maxon, and skin was closed using dixon. Estimated blood loss was noted to be 800 mL. The patient tolerated the procedure well. She was taken to the recovery room in stable condition. Visit Coding OBGYN Date of Service: Apr 15, 2025 Billing Provider: KAIT MORRIS DO CHORE TENDER Common Visit Codes: [id number] INP/OBS CARE (HIGH) CHORE TENDER Procedure Codes: 73624-HHZDB @ TIME OF , 26263-C-FSGJBOT DELIVERY ONLY KAIT MORRIS DO Apr 15, 2025 08:24
[2025-04-15] MEDS: HYDROmorphone HCL 2 MG/ML VL/or syr IV PRN ×2 (08:26→20:40)
--- NOTE | 2025-04-15 08:26 | POSTOP ---
Post-Operative Note Post-Operative Note Preop Diagnosis term preg desires pcs with btl,macrosomia,gdma2,morbid obesity, Postop Diagnosis: same Operation performed pltcs with btl Specimen baby boy Anesthesia: General Anesthesiologist: nugyen Blood Loss(fluid mgmt) 800ml Surgeon Wilber Morris Cookie Padder moises Campos filschie Complications & Mgmt none Date 04/15/25 Time 08:25 Visit Coding OBGYN Date of Service: Apr 15, 2025 Billing Provider: WILBER MORRIS DO SOLAR MANUFACTURER'S REPRESENTATIVE Common Visit Codes: [id number] INP/OBS CARE (HIGH) SOLAR MANUFACTURER'S REPRESENTATIVE Procedure Codes: 36724-AEBDM @ TIME OF , 58600-R-[id number] DELIVERY ONLY WILBER MORRIS DO Apr 15, 2025 08:26
[2025-04-15] MEDS: ONDANSETRON HCL 4 MG/2 ML VIAL IV PRN (09:43)
[2025-04-15] MEDS: ACETAMINOPHEN IV 1000 MG/100ML (10MG/ML) IV PRN ×2 (09:43→19:33)
[2025-04-15] MEDS: SUCCINYLCHOLINE CHLORIDE 20 MG/ML 10ML VIAL IV ONE (09:57)
[2025-04-15] MEDS: HYDROmorphone HCL 2 MG/ML VL/or syr ONE (09:57)
[2025-04-15] MEDS: LACT. RINGERS/OXYTOCIN 20UNITS 1,000 ML IV ONE (09:58)
[2025-04-15] MEDS ORDERED: HYDR-4072 PO (12:14)
[2025-04-15] MEDS ORDERED: IBUP-1456 PO (12:14)
[2025-04-15] MEDS ORDERED: CEPH500T PO (12:14)
[2025-04-15] MEDS ORDERED: DOCU-94 PO (12:14)
[2025-04-15] MEDS: fentaNYL CITRATE 100 MCG/2 ML VL IV PRN (13:25)
[2025-04-15] MEDS: ceFAZolin 1GM/50ML 50 ML IV SCH (15:33)
[2025-04-15] MEDS: HYDROmorphone HCL 2 MG/ML VL/or syr IV ONE (15:52)
[2025-04-15] MEDS: MORPHINE SULFATE 4 MG/ML SYR/VIAL IV PRN (18:46)
[2025-04-15] MEDS ORDERED: MORPHINE SULFATE INJ 2 MG/ml SYRG IV PRN (20:30)
[2025-04-15 21:29] LABS: Hemoglobin 9.3 g/dL (12.2-16.2); Nucleated Red Blood Cells % 0.0 %
[2025-04-15 21:30] LABS: Hematocrit 28.1 % (36.0-46.0); Mean Corpuscular Hemoglobin 26.7 pg (28.0-32.0); Mean Corpuscular Volume 80.5 fL (80.0-100.0)
[2025-04-15] MEDS: LACTATED RINGER'S 1,000 ML IV SCH (23:33)
[2025-04-16 03:00] VITALS: BP 112/72; PULSE 87; RESP 16; TEMP 99; O2SAT 95
[2025-04-16] MEDS: ACETAMINOPHEN IV 1000 MG/100ML (10MG/ML) IV PRN (03:25)
--- NOTE | 2025-04-16 04:25 | DVHPN2 ---
Progress Note Date Seen: Apr 16, 2025 Subjective Aicha was resting comfortably in bed upon entry to room. She is feeling optimistic about her milestones and is hoping to leave on Friday so she can go see her baby at [facility]. Subjective: -Lochia minimal -Regular diet well tolerated. -Ambulating w/o feeling dizzy or lightheaded. Chung just d/c @ 0300 -Pain relieved with oral medication PRN -No gas or BM yet. -Has not started pumping yet vital signs Vital Sign Date Time Temp Pulse Resp B/P (MAP) Pulse Ox O2 Delivery O2 Flow Rate FiO2 04/16/25 04:05 87 20 112/72 04/16/25 03:00 99.0 95 99.0 04/15/25 19:00 Room Air 04/15/25 07:55 0 04/15/25 07:55 94 Total Intake and Output 04/15/25 04/15/25 04/16/25 15:00 23:00 07:00 Output Total 400 ml 3100 ml 1700 ml Balance -400 ml -3100 ml -1700 ml medications Current Medications Medications Dose Ordered Sig/Chevy Route Start Time Stop Time Status Last Admin Dose Admin Lactated Ringer's 1,000 ml @ 125 mls/hr Q8H IV 04/15/25 04:30 04/15/25 23:33 125 MLS/HR Ondansetron HCl 4 mg Q4HP PRN IV 04/15/25 07:15 04/15/25 20:38 4 MG Hydromorphone HCl 1 mg Q2HPRN PRN IV 04/15/25 20:30 04/16/25 04:05 1 MG Morphine Sulfate 2 mg Q4HPRN PRN IV 04/15/25 20:30 Acetaminophen 1,000 mg Q8HPRN PRN IV 04/15/25 20:30 04/16/25 20:29 04/16/25 03:25 1,000 MG laboratory and microbiology Laboratory Tests 04/15/25 21:15 04/13/25 11:50 Test 04/13/25 11:50 Range/Units Serum Glucose 73 L 74-106 mg/dL Objective Objective: -A&O x4. No apparent distress. Affect appropriate -Afebrile, VSS -Chest: heart and lung sounds normal. -Breasts: Nipples intact w/o cracks or soreness -Abdomen: normal BS, soft, non-tender, no rebound or guarding, fundus firm @ U- 1, -Lower abdominal incision site with dressing dry and intact. Three small spots of dried blood noted on dressing. No edema, erythema or induration -Extremities: no edema or tenderness Problems(with codes): (1) Status post delivery Assessment/Plan Assessment: 29 yo now Post operative & ppd # 1 s/p repeat Section, doing well. Blood Type: O+ Baby in NICU Rubella Immune Plan: -Continue pain management with medications as previously ordered. Will place PO med orders for 24 hours post op -Increase fluid intake and fiber in diet to promote regular bowel movements, Laxative PRN. Encouraged patient to ambulate when possible -Patient encouraged to start breast massage, hand expression, or pumping so she can give colostrum to baby in NICU and promote supply -Educated patient on self-care -Continue routine care Plan discussed with: Patient Visit Coding OBGYN Date of Service: Apr 16, 2025 Billing Provider: GENO JIMENES CNM PSYCHIATRIC SECRETARY Common Visit Codes: [id number] INP/OBS CARE(HIGH) GENO JIMENES CNM Apr 16, 2025 04:25
[2025-04-16] MEDS ORDERED: HYDROcodone-ACET 5/325MG TAB PO PRN ×2 (04:30→09:00)
[2025-04-16] MEDS ORDERED: BISACODYL 10 MG RECT SUPP PR PRN (04:30)
[2025-04-16 06:10] LABS: Hematocrit 28.1 % (36.0-46.0); Hemoglobin 9.4 g/dL (12.2-16.2); Mean Corpuscular Hemoglobin 26.8 pg (28.0-32.0); Mean Corpuscular Volume 80.3 fL (80.0-100.0); Nucleated Red Blood Cells % 0.0 %
[2025-04-16 06:30] VITALS: BP 117/77; PULSE 86; RESP 18; TEMP 98.4; O2SAT 95
[2025-04-16] MEDS: ACETAMINOPHEN 325 MG TAB PO SCH (08:30)
[2025-04-16] MEDS: SIMETHICONE 80 MG CHEWABLE TABLET PO PRN (08:38)
[2025-04-16] MEDS: IBUPROFEN 800 MG TAB PO SCH (08:38)
[2025-04-16] MEDS: ceFAZolin 1GM/50ML 50 ML IV SCH (08:49)
[2025-04-16] MEDS: AMMONIA 0.33 ML INHALANT IN ONE (08:49)
[2025-04-16] MEDS ORDERED: ACETAMINOPHEN 325 MG TAB PO PRN (09:00)
[2025-04-16] MEDS: HYDROcodone-ACET 5/325MG TAB PO PRN (10:18)
[2025-04-16] MEDS: DOCUSATE SOD 100 MG CAP PO SCH (10:18)
[2025-04-16 10:30] VITALS: BP 112/59; PULSE 76; RESP 17; TEMP 98.7; O2SAT 95
[2025-04-16 14:45] VITALS: BP 122/72; PULSE 78; RESP 17; TEMP 98.4; O2SAT 98
[2025-04-16] MEDS: IBUPROFEN 800 MG TAB PO PRN (17:43)
[2025-04-16 19:00] VITALS: BP 118/76; PULSE 95; RESP 18; TEMP 97.7; O2SAT 97
[2025-04-16 23:00] VITALS: BP 114/69; PULSE 87; RESP 16; TEMP 98; O2SAT 99
[2025-04-17 03:00] VITALS: BP 124/72; PULSE 81; RESP 18; TEMP 98.2; O2SAT 96
[2025-04-17 06:30] VITALS: BP 118/71; PULSE 74; RESP 17; TEMP 98.6; O2SAT 99
--- NOTE | 2025-04-17 07:37 | DVHDS2 ---
Discharge Summary Discharge Summary Date of Admission: Apr 16, 2025 Date of Discharge: Apr 17, 2025 Discharge Diagnosis: Primary Section Hospital Course PP Note C- Section Subjective 29y/o now (3,0,0,3) 39w1d Primary Section for Macrosomia of infant and bilateral tubal ligation 04/15/2025 Delivery of viable @ 0727 General Anesthesia in Post operative & ppd # 2 s/p Primary Section doing well. Lochia minimal. Advancing /Clear liquid / soft / Regular diet well tolerated. Ambulating and voiding well w/o feeling dizzy or lightheaded. Pain relieved with oral / IV / analgesics. Passing flatus but no BM yet. Infant transfer to [facility] for higher acuity if care Desires to be discharged today Blood Type: O Rh: Positive Antibody Negative Rubella Immune GBS unknown Hep B Negative Objective Vital Signs Date Time Temp Pulse Resp B/P (MAP) Pulse Ox O2 Delivery O2 Flow Rate FiO2 04/17/25 03:00 98.2 81 18 124/72 (89) 96 98.2 04/16/25 19:00 Room Air 04/15/25 07:55 0 04/15/25 07:55 94 I & O 04/17/25 07:00 Output Total 2600 ml Balance -2600 ml Output Urine Total 2600 ml Laboratory Tests Test 04/16/25 05:52 04/15/25 06:39 04/13/25 11:50 04/13/25 10:15 Range/Units White Blood Count 10.3 4.4-10.8 10^3/uL Red Blood Count 3.50 L 4.0-5.20 10^6/uL Hemoglobin 9.4 L 12.2-16.2 g/dL Hematocrit 28.1 L 36.0-46.0 % Mean Corpuscular Volume 80.3 80.0-100.0 fL Mean Corpuscular Hemoglobin 26.8 L 28.0-32.0 pg Mean Corpuscular Hemoglobin Concent 33.4 32.0-36.0 g/dL Red Cell Distribution Width 15.4 H 11.8-14.3 % Platelet Count 234 140-450 10^3/uL Mean Platelet Volume 7.7 6.9-10.8 fL Neutrophils (%) (Auto) 85.2 H 37.0-80.0 % Lymphocytes (%) (Auto) 8.7 L 10.0-50.0 % Monocytes (%) (Auto) 5.5 0.0-12.0 % Eosinophils (%) (Auto) 0.4 0.0-7.0 % Basophils (%) (Auto) 0.2 0.0-2.0 % Neutrophils # (Auto) 8.8 H 1.6-8.6 10 ^3/uL Lymphocytes # (Auto) 0.9 0.4-5.4 10 ^3/uL Monocytes # (Auto) 0.6 0-1.3 10 ^3/uL Eosinophils # (Auto) 0 0-0.8 10 ^3/uL Basophils # (Auto) 0 0-0.2 10 ^3/uL Nucleated Red Blood Cells 0.0 % POC Glucose 107 H 70-106 mg/dl Prothrombin Time 9.6 9.3-11.8 sec Prothrombin Time INR 0.9 0.9-1.15 Activated Partial Thromboplast Time 24.3 L 24.5-34.5 SEC Sodium Level 140 136-145 mmol/L Potassium Level 4.1 3.5-5.1 mmol/L Chloride Level 107 98-107 mmol/L Carbon Dioxide Level 24 20-31 mmol/L Anion Gap 9 5-15 Blood Urea Nitrogen < 5 L 9-23 mg/dL Creatinine 0.47 L 0.550-1.02 mg/dL Glomerular Filtration Rate Calc 131 >90 mL/min BUN/Creatinine Ratio 10.6 10.0-20.0 Serum Glucose 73 L 74-106 mg/dL Calcium Level 8.6 L 8.7-10.4 mg/dL Total Bilirubin 0.4 0.2-1.0 mg/dL Aspartate Amino Transferase (AST) 21 13-40 U/L Alanine Aminotransferase (ALT) 12 7-40 U/L Alkaline Phosphatase 190 H 46-116 U/L Total Protein 6.6 5.7-8.2 g/dL Albumin 3.7 3.2-4.8 g/dL Treponema pallidum Antibody Non-reactive Negative Urine Color Light-yellow Yellow Urine Clarity Clear Clear Urine pH 6.5 5.0-9.0 Urine Specific [place] 1.012 1.001-1.035 Urine Protein Negative Negative Urine Ketones Negative Negative Urine Blood Negative Negative /uL Urine Nitrite Negative Negative Urine Bilirubin Negative Negative Urine Urobilinogen Normal Negative mg/dL Urine Leukocyte Esterase Negative Negative /uL Urine RBC <1 0 - 4 /hpf Urine Microscopic WBC < 1 0-5 /HPF Urine Squamous Epithelial Cells Few <5 /hpf Urine Bacteria None seen None Seen /hpf Urine Mucus Few None Seen Urine Glucose Normal Normal mg/dL Urine Opiates Screen Neg NEGATIVE Urine Fentanyl Screen Neg NEGATIVE Urine Barbiturates Screen Neg NEGATIVE Urine Phencyclidine Screen Neg NEGATIVE Urine Amphetamines Screen Neg NEGATIVE Urine Benzodiazepines Screen Neg NEGATIVE Urine Cocaine Screen Neg NEGATIVE Urine Cannabinoids Screen Neg NEGATIVE Afebrile, VSS Fundus firm @ -1 umbilicus , midline Chest: heart and lung sounds normal. Breasts: Nipples intact w/o cracks or soreness Abdomen: normal BS, soft, non-tender, no rebound or guarding, Lower abdominal Incision site with Sylke / dressing / open to fresh air same clean, dry and intact. \ No edema, erythema or induration Extremities: no edema or tenderness Lochia - minimal Assessment/Plan Pain control with oral medications Bowel regimen: Increase fluid intake Discharge plan: May discharge home today FOR D/C SUMMARY Diet: Routine regular diet rich in fiber, protein, iron and vitamin C with adequate fluid intake. Activity: Unrestricted. Advance as tolerated. Balance activities with rest periods. No heavy lifting, pushing or straining. Pelvic rest x 6weeks Follow up with OB Provider in 1 week Medications: Ibuprofen 600mg every 6 hours as needed for pain. Continue Vitamin and iron Instructions: Post operative and self care instructions given. self care instructions given. emergency signs and symptoms including but not limited to pre- eclampsia precautions and signs of infection, Follow up with OB Provider in 1 week Discharge Disposition: Home Medications Current Medications Medications (Trade) Dose Ordered Sig/Chevy Route Start Time Stop Time Status Last Admin Dose Admin Lactated Ringer's 1,000 ml @ 125 mls/hr Q8H IV 04/15/25 04:30 04/15/25 23:33 125 MLS/HR Ondansetron HCl (Zofran) 4 mg Q4HP PRN IV 04/15/25 07:15 04/15/25 20:38 4 MG Docusate Sodium (Colace Capsule) 100 mg Q12HR PO 04/16/25 10:00 04/16/25 22:11 100 MG Dimethicone (Mylicon Tab) 80 mg QID PRN PO 04/16/25 04:30 04/17/25 07:06 80 MG Bisacodyl (Dulcolax Suppository) 10 mg DAILYP PRN ID 04/16/25 04:30 Acetaminophen (Tylenol Tablet) 650 mg Q6HP PRN PO 04/16/25 09:00 Acetaminophen/ Hydrocodone Bitart (Victor 5/325MG Tab) 2 tab Q4HPRN PRN PO 04/16/25 09:00 04/17/25 07:06 2 TAB Acetaminophen/ Hydrocodone Bitart (Victor 5/325MG Tab) 1 tab Q4HPRN PRN PO 04/16/25 09:00 Ibuprofen (Motrin Tablet) 800 mg Q8HP PRN PO 04/16/25 14:30 04/17/25 03:59 800 MG Discharge Care Plan Problem Pain, Risk for injury/Safety, Increase in fluid intake Goals Pain relieved Instructions Take Rx medications Risk factors Proper handwashing, Avoid infectious people, S/S to look for Visit Coding OBGYN Date of Service: Apr 17, 2025 Billing Provider: JOESPH CHASE CNM INFORMATION TECHNOLOGY PROGRAM MANAGER Common Visit Codes: [id number] OBS CARE (MOD), 21266-NYK/OBS DISCH DAY >30MIN [facility]ASE [facility] 07:37
[2025-04-17 08:27] VITALS: BP 118/71; PULSE 74; RESP 17; TEMP 98.6; O2SAT 99
== END 2025-04-17 08:27 | disposition home or self-care (01) | DRG 539 ==
LOC: LDRP 04-15 04:08
PROVIDERS: ADMIT Obstetrics & Gynecology; ATTEND Obstetrics & Gynecology
PROC: 10D00Z1 Extraction of Products of Conception, Low, Open Approach (ICD-10-PCS; 2025-04-15)
PROC: 0UL70CZ Occlusion of Bilateral Fallopian Tubes with Extraluminal Device, Open Approach (ICD-10-PCS; principal; 2025-04-15 06:58)
DX: O36.63X0 Maternal care for excessive fetal growth, third trimester, not applicable or unspecified (principal); O24.429 Gestational diabetes mellitus in childbirth, unspecified control; O99.214 Obesity complicating childbirth; Z30.2 Encounter for sterilization; O34.211 Maternal care for low transverse scar from previous cesarean delivery; Z3A.39 39 weeks gestation of pregnancy; Z37.0 Single live birth
CPT/HCPCS: 36415; 59025; 80053; 80307; 81001; 82962; 85025; 85610; 85730; 86780; 86850; 86900; 86901; 94760; 94762; 96360; 96361; 96374; G0378; J0131; J0169; J0330; J2250; J2405; J2704

== ENCOUNTER 2025-04-26 11:06 | Inpatient (IN) | payer MEDICAID ==
[~2025-04-26] VITALS: Ht 170.2 cm; Wt 100.5 kg
[~2025-04-26 11:06] MED LIST changes: +CEPH500T PO; +DOCU-94 PO; +HYDR-4072 PO; +IBUP-1456 PO
--- NOTE | 2025-04-26 11:34 | ED.PDOC ---
Musculoskeletal HPI Comments This is a 29 year old female presenting to the ED with chief complaint of extremity swelling. Patient reports that she has been experiencing bilateral leg and feet swelling for the past 2 days with associated facial swelling today and chest pain since last night. Patient relays that she had a recent performed by Dr. Morris in [facility] on 04/15/25. Patient states she had history of gestational diabetes, but was taken off of her Metformin. Patient denies any numbness, weakness, SOB, dizziness, fever, chills, or cough. Chief Complaint: Extremity Swelling Time Seen by MD: 11:32 Reviewed Notes: Nurses Notes, Medications, Allergies Allergies: Coded Allergies: NO KNOWN ALLERGIES (Unverified , 04/15/25) Home Meds Active Scripts Ibuprofen (Ibuprofen) 800 Mg Tab, 800 MG PO TID PRN for 5 Days, #21 TAB Prov:WILBER MORRIS DO 04/15/25 Hydrocodone-Acetaminophen (Hydrocodone/Acetaminophen 10-325 mg) 1 Tab Tab, 1 TAB PO Q6HPRN PRN for 7 Days, #28 TAB Prov:WILBER MORRIS DO 04/15/25 Docusate Sodium (Colace) 100 Mg Cap, 1 CAP PO BID for 7 Days, #60 CAP 2 Refills Prov:JEAN-PIERREWILBER DO 04/15/25 Cephalexin Monohydrate (Cephalexin) 500 Mg Tab, 500 MG PO QID for 7 Days, #28 TAB Prov:WILBER MORRIS 04/15/25 Reported Medications Metformin Hydrochloride (Metformin Hcl) 500 Mg Tab, 1000 MG PO HS for 30 Days, MG 03/03/25 Vit W/ Ferrous Fumara ( One Daily) Daily Tab, 1 TAB PO DAILY, #90 TAB 3 Refills 03/03/25 Information Source: Patient Mode of Arrival: Ambulatory Location: Bilateral Extremity Location: Foot, Leg, Other (Face) Timing: Days Prehospital treatment: None Severity: Moderate Able to Move Extremity: Yes Pain: Moderate Mechanism: Spontaneous Circumstances: Accident Onset of Symptoms: Spontaneous Symptoms: Swelling DVT Risk Factors: Recent surgery () Associated signs and symptoms: Chest pain Past Medical History PAST MEDICAL HISTORY: Denies Surgical History: [employer] MANAGER History: 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 Family History Family History: Reviewed,noncontributory to illness Social History Smoker: Non-Smoker Alcohol: Denies ETOH Use Drugs: Denies Drug Use Lives In: Home Constitutional: denies: chills, diaphoresis, fatigue, fever, malaise, sweats, weakness, others EENTM: denies: blurred vision, double vision, ear bleeding, ear discharge, ear drainage, ear pain, ear ringing, eye pain, eye redness, hearing loss, mouth pain, mouth swelling, nasal discharge, nose bleeding, nose congestion, nose pain, photophobia, tearing, throat pain, throat swelling, voice changes, others Respiratory: denies: cough, hemoptysis, orthopnea, SOB at rest, shortness of breath, SOB with excertion, stridor, wheezing, others Cardiovascular: reports: chest pain, edema; denies: dizzy spells, diaphoresis, Dyspnea on exertion, irregular heart beat, left arm pain, lightheadedness, palpitations, PND, syncope, others Gastrointestinal: denies: abdomen distended, abdominal pain, blood streaked bowels, constipated, diarrhea, dysphagia, difficulty swallowing, hematemesis, melena, nausea, poor appetite, poor fluid intake, rectal bleeding, rectal pain, vomiting, others Genitourinary: denies: abnormal vagina bleeding, burning, dyspareunia, dysuria, flank pain, frequency, hematuria, incontinence, pain, , vagina discharge, urgency, others Neurological: denies: dizziness, fainting, headache, left sided numbness, left sided weakness, numbness, paresthesia, pre-existing deficit, right sided numbness, right sided weakness, seizure, speech problems, tingling, tremors, weakness, others Musculoskeletal: denies: back pain, gout, joint pain, joint swelling, muscle pain, muscle stiffness, neck pain, others Integumetry: reports: others (Facial swelling); denies: bruises, change in color, change in hair/nails, dryness, laceration, lesions, lumps, rash, wounds Allergic/Immunocompromised: denies: Difficulty Healing, Frequent Infections, Hives, Itching, others Hematologic/Lymphatic: denies: anemia, blood clots, easy bleeding, easy bruising, swollen glands, others Endocrine: denies: excessive hunger, excessive sweating, excessive thirst, excessive urination, flushing, intolerance to cold, intolerance to heat, unexplained weight gain, unexplained weight loss, others Psychiatric: denies: anxiety, bipolar disorder, depression, hopeless, panic disorder, schizophrenia, sleepless, suicidal, others All Other Systems: Reviewed and Negative Physical Exam General Appearance: Moderate Distress HEENT: Normal ENT Inspection, Pharynx Normal, TMs Normal, Other (Generalized facial swelling) Neck: Full Range of Motion, Non-Tender, Normal, Normal Inspection Respiratory: Chest Non-Tender, Lungs Clear, No Accessory Muscle Use, No Respiratory Distress, Normal Breath Sounds Cardiovascular: No Edema, No JVD, No Murmur, No Gallop, Normal Peripheral Pulses, Regular Rate/Rhythm Breast Exam: Deferred Gastrointestinal: No Organomegaly, Non Tender, No Pulsatile Mass, Normal Bowel Sounds, Soft Genitalia: Deferred Pelvic: Deferred Rectal: Deferred Extremities: No calf tenderness, Normal capillary refill, Pedal edema Musculoskeletal : Apperance: Normal Neurologic: Alert, environment coordinator II-XII nml as Tested, Motor Weakness, Normal Affect, Normal Mood, No Sensory Deficits Cerebellar Function: Normal Reflexes: Normal Skin: Dry, Normal Color, Warm Lymphatic: No Adenopathy Was a procedure done? Was a procedure done?: No Differential Diagnosis EXT Differential Diagnosis: Fracture, Sprain, Other (Preeclampsia, generalized weakness) X-Ray, Labs, Meds, VS Vital Signs Date Time Temp Pulse Resp B/P (MAP) Pulse Ox O2 Delivery O2 Flow Rate FiO2 04/26/25 16:00 99.2 48 16 143/71 (95) 96 99.2 04/26/25 11:08 97.8 51 51 142/90 95 97.8 Lab Test 04/26/25 11:43 Range/Units White Blood Count 5.7 4.4-10.8 10^3/uL Red Blood Count 3.26 L 4.0-5.20 10^6/uL Hemoglobin 8.5 L 12.2-16.2 g/dL Hematocrit 26.6 L 36.0-46.0 % Mean Corpuscular Volume 81.6 80.0-100.0 fL Mean Corpuscular Hemoglobin 26.0 L 28.0-32.0 pg Mean Corpuscular Hemoglobin Concent 31.8 L 32.0-36.0 g/dL Red Cell Distribution Width 15.8 H 11.8-14.3 % Platelet Count 241 140-450 10^3/uL Mean Platelet Volume 8.1 6.9-10.8 fL Neutrophils (%) (Auto) 69.1 37.0-80.0 % Lymphocytes (%) (Auto) 23.7 10.0-50.0 % Monocytes (%) (Auto) 5.4 0.0-12.0 % Eosinophils (%) (Auto) 1.5 0.0-7.0 % Basophils (%) (Auto) 0.3 0.0-2.0 % Neutrophils # (Auto) 4.0 1.6-8.6 10 ^3/uL Lymphocytes # (Auto) 1.4 0.4-5.4 10 ^3/uL Monocytes # (Auto) 0.3 0-1.3 10 ^3/uL Eosinophils # (Auto) 0.1 0-0.8 10 ^3/uL Basophils # (Auto) 0 0-0.2 10 ^3/uL Nucleated Red Blood Cells 0.1 % Prothrombin Time 11.1 9.3-11.8 sec Prothrombin Time INR 1.05 0.9-1.15 Activated Partial Thromboplast Time 24.4 L 24.5-34.5 SEC Sodium Level 144 136-145 mmol/L Potassium Level 3.6 3.5-5.1 mmol/L Chloride Level 109 H 98-107 mmol/L Carbon Dioxide Level 25 20-31 mmol/L Anion Gap 10 5-15 Blood Urea Nitrogen 15 9-23 mg/dL Creatinine 0.65 0.550-1.02 mg/dL Glomerular Filtration Rate Calc 121 >90 mL/min BUN/Creatinine Ratio 23.1 H 10.0-20.0 Serum Glucose 116 H 74-106 mg/dL Uric Acid 5.3 3.1-7.8 mg/dL Calcium Level 8.2 L 8.7-10.4 mg/dL Magnesium Lvl (Mg Sulfate Therapy) 1.64 L 4.0-7.1 mg/dL Total Bilirubin 0.3 0.2-1.0 mg/dL Aspartate Amino Transferase (AST) 54 H 13-40 U/L Alanine Aminotransferase (ALT) 69 H 7-40 U/L Alkaline Phosphatase 140 H 46-116 U/L Total Protein 5.8 5.7-8.2 g/dL Albumin 3.5 3.2-4.8 g/dL Beta HCG, Quantitative 9.3 H 1.5-4.2 mIU/mL Current Medications Medications (Trade) Dose Ordered Sig/Chevy Route Start Time Stop Time Status Last Admin Lactated Ringer's 1,000 ml @ 75 mls/hr [id number] IV 04/26/25 15:15 04/26/25 16:23 Magnesium Sulfate 100 ml @ 300 mls/hr ONCE ONCE IV 04/26/25 15:15 04/26/25 15:46 DC 04/26/25 16:08 Cefazolin Sodium/ Dextrose 50 ml @ 50 mls/hr ONCE ONCE IV 04/26/25 15:15 04/26/25 16:14 DC 04/26/25 15:15 At 3:05 p.m. we did speak with Dr. Morris and at this time we were going to admit the patient for possible magnesium infusion. The patient's CBC shows anemia with a hemoglobin of 8.5 and hematocrit 26.6 The uric acid is pending The chemistry panel is within normal limits. Low the liver enzymes are all elevated. The quantitative hCG is 9.3 We are concerned about preeclampsia so we did speak with Dr. Morris We then called for the patient but it seems she has eloped from the department's We are contacting her back to bring her back to the hospital as she needs to be treated as an inpatient. 1545: Patient has returned to the ED and is now in bed 18 at this time. We did speak with Dr. Collazo as well as the promotion officer and at this time, the patient will be admitted to medicine and they will be consulting with the patient The patient has been started on magnesium sulfate as well as lactated Ringer's. They will continue to monitor the patient's blood pressure as well as the liver enzymes. The uric acid level came back and is negative The patient is being admitted at this time Images Reviewed?: Images reviewed and evaluated by me Time of 1ST Reevaluation: 15:15 Reevaluation 1ST: Unchanged Patient Education/Counseling: Diagnosis, Treatment, Prognosis Family Education/Counseling: No Family Present Departure 1 Departure Time of Disposition: 16:35 Impression: Primary Impression: Status post delivery Additional Impression: Preeclampsia in period Disposition: ADMITTED INPATIENT Admit to: Tele Condition: Fair Critical Care Note Critical Care Time?: Yes (45 min-critical care time only) Stability Stability form required: Yes Unstable for transfer: Telemetry monitoring (Telemetry monitoring required), ED Physician Assesment (Clinical assesment) Heart Score Heart Score: Heart Score Response (Comments) Value History Moderate Suspicious 1 EKG Normal 0 Age <45 0 Risk Factors No known risk factors 0 Troponin N/A 0 Total 1 I personally scribed for LYRIC TSE MD ([email or web address]) on 04/26/25 at 11:34. Electronically submitted by Ze Monsalve ([email or web address]). I personally scribed for LYRIC TSE MD ([email or web address]) on 04/26/25 at 16:02. Electronically submitted by Ze Monsalve ([email or web address]). LYRIC TSE MD Apr 26, 2025 11:34
[2025-04-26 12:10] LABS: Hematocrit 26.6 % (36.0-46.0); Hemoglobin 8.5 g/dL (12.2-16.2); Mean Corpuscular Hemoglobin 26.0 pg (28.0-32.0); Mean Corpuscular Volume 81.6 fL (80.0-100.0); Nucleated Red Blood Cells % 0.1 %
[2025-04-26 12:27] LABS: INR 1.05 (0.9-1.15); Partial Thromboplastin Time 24.4 SEC (24.5-34.5); Prothrombin Time 11.1 sec (9.3-11.8)
[2025-04-26 12:32] LABS: Albumin 3.5 g/dL (3.2-4.8); Anion Gap 10 (5-15); BUN/Creatinine Ratio 23.1 (10.0-20.0); Blood Urea Nitrogen 15 mg/dL (9-23); Carbon Dioxide 25 mmol/L (20-31); Potassium 3.6 mmol/L (3.5-5.1); Sodium 144 mmol/L (136-145); Total Protein 5.8 g/dL (5.7-8.2)
[2025-04-26 12:33] LABS: Bilirubin, Total 0.3 mg/dL (0.2-1.0)
[2025-04-26 12:38] LABS: Alanine Aminotransferase 69 U/L (7-40); Alkaline Phosphatase 140 U/L (46-116); Calcium 8.2 mg/dL (8.7-10.4); Chloride 109 mmol/L (98-107); Glucose 116 mg/dL (74-106)
[2025-04-26] MEDS: ceFAZolin 2 GM/D5W50ml 50 ML IV ONE (15:15)
[2025-04-26] MEDS: MAGNESIUM SULFATE 100 ML IV ONE (16:08)
[2025-04-26] MEDS: LACTATED RINGER'S 1,000 ML IV SCH (16:23)
--- NOTE | 2025-04-26 16:28 | DVHINCON2 ---
Date of service: Apr 26, 2025 Reason for Consultation hypertension History of Present Illness 29yo now presents to ED with c/o new onset swelling in her BLE for the last two days and this morning she had facial swelling. Denies HENSON/vision changes/RUQ pain. Still has light lochia and mild incisional pain. OB hx: #1 - , no complications #2 - , no complications #3 - s/p primary C/S with BTL on 04/15/[address] Morris, complicated by GDM, A2 and macrosomia Past Medical History anemia Past Surgical History C/S on 04/15/25 Family History cancer on both sides of family mother: HTN Social History denies Allergies: Coded Allergies: NO KNOWN ALLERGIES (Unverified , 04/15/25) Home Meds Active Scripts Ibuprofen (Ibuprofen) 800 Mg Tab, 800 MG PO TID PRN for 5 Days, #21 TAB Prov:JAIMEUMAIRWILBER DO 04/15/25 Hydrocodone-Acetaminophen (Hydrocodone/Acetaminophen 10-325 mg) 1 Tab Tab, 1 TAB PO Q6HPRN PRN for 7 Days, #28 TAB Prov:WILBER MORRIS 04/15/25 Docusate Sodium (Colace) 100 Mg Cap, 1 CAP PO BID for 7 Days, #60 CAP 2 Refills Prov:JAIMEUMAIRWILBER 04/15/25 Cephalexin Monohydrate (Cephalexin) 500 Mg Tab, 500 MG PO QID for 7 Days, #28 TAB Prov:WILBER MORRIS 04/15/25 Reported Medications Metformin Hydrochloride (Metformin Hcl) 500 Mg Tab, 1000 MG PO HS for 30 Days, MG 03/03/25 Vit W/ Ferrous Fumara ( One Daily) Daily Tab, 1 TAB PO DAILY, #90 TAB 3 Refills 03/03/25 Current Medications Current Medications Medications (Trade) Dose Ordered Sig/Chevy Route PRN Reason Start Time Stop Time Status Last Admin Lactated Ringer's 1,000 ml @ 75 mls/hr [id number] IV 04/26/25 15:15 Magnesium Sulfate 1,000 ml @ 50 mls/hr Q20H IV 04/26/25 15:15 Cefazolin Sodium 50 ml @ 100 mls/hr Q8HR IV 04/26/25 23:00 Review of Systems Constitutional: no fever, chill, weight loss HEENT: no eye pain, no hearing loss, no oral lesion, no scleral icterus Heart: no chest pain, no chest pressure Lung: no cough, no dyspnea with exertion Abdomen: see HPI : no pain with urination, normal appearing urine Musculoskeletal: no joint pain, no muscle pain Neurological: no seizure, no loss of sensation, no weakness in extremities Pysch: no depression, no anxiety Derm: no rash, no jaundice Vital Signs VS cycling q1hr Vital Signs Date Time Temp Pulse Resp B/P (MAP) Pulse Ox O2 Delivery O2 Flow Rate FiO2 04/26/25 11:08 97.8 51 51 142/90 95 97.8 Laboratory Tests Test 04/26/25 11:43 Range/Units White Blood Count 5.7 4.4-10.8 10^3/uL Red Blood Count 3.26 L 4.0-5.20 10^6/uL Hemoglobin 8.5 L 12.2-16.2 g/dL Hematocrit 26.6 L 36.0-46.0 % Mean Corpuscular Volume 81.6 80.0-100.0 fL Mean Corpuscular Hemoglobin 26.0 L 28.0-32.0 pg Mean Corpuscular Hemoglobin Concent 31.8 L 32.0-36.0 g/dL Red Cell Distribution Width 15.8 H 11.8-14.3 % Platelet Count 241 140-450 10^3/uL Mean Platelet Volume 8.1 6.9-10.8 fL Neutrophils (%) (Auto) 69.1 37.0-80.0 % Lymphocytes (%) (Auto) 23.7 10.0-50.0 % Monocytes (%) (Auto) 5.4 0.0-12.0 % Eosinophils (%) (Auto) 1.5 0.0-7.0 % Basophils (%) (Auto) 0.3 0.0-2.0 % Neutrophils # (Auto) 4.0 1.6-8.6 10 ^3/uL Lymphocytes # (Auto) 1.4 0.4-5.4 10 ^3/uL Monocytes # (Auto) 0.3 0-1.3 10 ^3/uL Eosinophils # (Auto) 0.1 0-0.8 10 ^3/uL Basophils # (Auto) 0 0-0.2 10 ^3/uL Nucleated Red Blood Cells 0.1 % Prothrombin Time 11.1 9.3-11.8 sec Prothrombin Time INR 1.05 0.9-1.15 Activated Partial Thromboplast Time 24.4 L 24.5-34.5 SEC Sodium Level 144 136-145 mmol/L Potassium Level 3.6 3.5-5.1 mmol/L Chloride Level 109 H 98-107 mmol/L Carbon Dioxide Level 25 20-31 mmol/L Anion Gap 10 5-15 Blood Urea Nitrogen 15 9-23 mg/dL Creatinine 0.65 0.550-1.02 mg/dL Glomerular Filtration Rate Calc 121 >90 mL/min BUN/Creatinine Ratio 23.1 H 10.0-20.0 Serum Glucose 116 H 74-106 mg/dL Uric Acid 5.3 3.1-7.8 mg/dL Calcium Level 8.2 L 8.7-10.4 mg/dL Magnesium Lvl (Mg Sulfate Therapy) 1.64 L 4.0-7.1 mg/dL Total Bilirubin 0.3 0.2-1.0 mg/dL Aspartate Amino Transferase (AST) 54 H 13-40 U/L Alanine Aminotransferase (ALT) 69 H 7-40 U/L Alkaline Phosphatase 140 H 46-116 U/L Total Protein 5.8 5.7-8.2 g/dL Albumin 3.5 3.2-4.8 g/dL Beta HCG, Quantitative 9.3 H 1.5-4.2 mIU/mL Vital Signs Date Time Temp Pulse Resp B/P (MAP) Pulse Ox O2 Delivery O2 Flow Rate FiO2 04/26/25 16:00 99.2 48 16 143/71 (95) 96 99.2 Physical Exam SKIN: WNL HEENT: WNL NECK: WNL CARDIAC: heart sounds WNL PULMONARY: clear sounds clear bilaterally A/P ABDOMEN: soft, non-tender, C/S incision C/D/I with [address] on right side edge MUSCULOSKELETAL: BLE (1+ edema and 2+ DTRs) NEURO: WNL Labs/Diagnostic Data urine P/C ratio: pending Labs Test 04/26/25 11:43 Range/Units White Blood Count 5.7 4.4-10.8 10^3/uL Red Blood Count 3.26 L 4.0-5.20 10^6/uL Hemoglobin 8.5 L 12.2-16.2 g/dL Hematocrit 26.6 L 36.0-46.0 % Mean Corpuscular Volume 81.6 80.0-100.0 fL Mean Corpuscular Hemoglobin 26.0 L 28.0-32.0 pg Mean Corpuscular Hemoglobin Concent 31.8 L 32.0-36.0 g/dL Red Cell Distribution Width 15.8 H 11.8-14.3 % Platelet Count 241 140-450 10^3/uL Mean Platelet Volume 8.1 6.9-10.8 fL Neutrophils (%) (Auto) 69.1 37.0-80.0 % Lymphocytes (%) (Auto) 23.7 10.0-50.0 % Monocytes (%) (Auto) 5.4 0.0-12.0 % Eosinophils (%) (Auto) 1.5 0.0-7.0 % Basophils (%) (Auto) 0.3 0.0-2.0 % Neutrophils # (Auto) 4.0 1.6-8.6 10 ^3/uL Lymphocytes # (Auto) 1.4 0.4-5.4 10 ^3/uL Monocytes # (Auto) 0.3 0-1.3 10 ^3/uL Eosinophils # (Auto) 0.1 0-0.8 10 ^3/uL Basophils # (Auto) 0 0-0.2 10 ^3/uL Nucleated Red Blood Cells 0.1 % Prothrombin Time 11.1 9.3-11.8 sec Prothrombin Time INR 1.05 0.9-1.15 Activated Partial Thromboplast Time 24.4 L 24.5-34.5 SEC Sodium Level 144 136-145 mmol/L Potassium Level 3.6 3.5-5.1 mmol/L Chloride Level 109 H 98-107 mmol/L Carbon Dioxide Level 25 20-31 mmol/L Anion Gap 10 5-15 Blood Urea Nitrogen 15 9-23 mg/dL Creatinine 0.65 0.550-1.02 mg/dL Glomerular Filtration Rate Calc 121 >90 mL/min BUN/Creatinine Ratio 23.1 H 10.0-20.0 Serum Glucose 116 H 74-106 mg/dL Uric Acid 5.3 3.1-7.8 mg/dL Calcium Level 8.2 L 8.7-10.4 mg/dL Magnesium Lvl (Mg Sulfate Therapy) 1.64 L 4.0-7.1 mg/dL Total Bilirubin 0.3 0.2-1.0 mg/dL Aspartate Amino Transferase (AST) 54 H 13-40 U/L Alanine Aminotransferase (ALT) 69 H 7-40 U/L Alkaline Phosphatase 140 H 46-116 U/L Total Protein 5.8 5.7-8.2 g/dL Albumin 3.5 3.2-4.8 g/dL Beta HCG, Quantitative 9.3 H 1.5-4.2 mIU/mL Primary Diagnosis preeclampsia Admitting Diagnosis: preeclampsia Plan CNM discussed findings with Dr. Morris. Pt is to be admitted to medicine per Dr. Morris. Dr. Urias made aware of plan. Magnesium sulfate 4g IV bolus then maintenance dose of 2g/hr Therapeutic magnesium level blood draw q6hrs, RN to notify Dr. Morris if level is 6 or greater. RN to notify Dr. Morris if SBP is 160 or greater and/or DBP is 95 or greater. Strict I/O with fenton catheter Ancef 2g IVPB bolus then 1g q8 hrs Repeat CMP in AM, order placed. Plan discussed with: Patient Problems List: (1) Preeclampsia in period Status: Acute Visit Coding OBGYN Date of Service: Apr 26, 2025 Billing Provider: LISSET MORALES CNM HOUSING QUALITY STANDARD INSPECTOR Common Visit Codes: CONSULTATION ONLY LISSET MORALES CNM Apr 26, 2025 16:28
[2025-04-26] MEDS: MAGNESIUM SULFATE 40MG/ML 1,000 ML IV SCH (16:40)
[2025-04-26 16:56] VITALS: PULSE 48; RESP 16; O2SAT 96
[2025-04-26 17:05] LABS: Urine Protein, UAD Negative (Negative)
[2025-04-26 17:17] LABS: Protein, Urine < 6.0 mg/dL (1-14)
[2025-04-26] MEDS ORDERED: ONDANSETRON HCL 4 MG/2 ML VIAL IV PRN (19:45)
[2025-04-26] MEDS ORDERED: TEMAZEPAM 15 MG CAP PO PRN (19:45)
[2025-04-26] MEDS ORDERED: NITROGLYCERIN 0.4 MG SL TAB SL PRN (19:45)
[2025-04-26] MEDS ORDERED: MORPHINE SULFATE 4 MG/ML SYR/VIAL IV PRN (20:00)
[2025-04-26] MEDS: ceFAZolin 1GM/50ML 50 ML IV SCH (23:21)
[2025-04-27] VITALS (8 sets, daily range): BP systolic 114–130; BP diastolic 62–85; PULSE 65–82; RESP 16–23; TEMP 97.6–98.5; O2SAT 93–97
--- NOTE | 2025-04-27 00:35 | DVHHP2 ---
History of Present Illness Reason for Visit: Lower extremity swelling History of Present Illness 29-year-old female presents for evaluation of facial and lower extremity swelling. Patient reports having a 10 days ago. She is reports noticing swelling to bilateral lower extremity and yesterday her face swelled up as well. She contacted her OBGYN who recommended to present to the emergency department for further evaluation. She also reported sharp chest pain the night prior. Denies any chest pain or shortness for breath at the moment. Past Medical History Gestational diabetes mellitus Past Surgical History Family History Noncontributory Smoke: No ALCOHOL: none Drugs: None Lives: with Family Review of Systems Review of Systems Review of systems are currently negative otherwise addressed in HPI. Allergies: Coded Allergies: NO KNOWN ALLERGIES (Unverified , 04/15/25) Medications Current Medications Medications Dose Ordered Sig/Chevy Route Start Time Stop Time Status Last Admin Dose Admin Lactated Ringer's 1,000 ml @ 75 mls/hr [id number] IV 04/26/25 15:15 04/26/25 16:23 75 MLS/HR Magnesium Sulfate 1,000 ml @ 50 mls/hr Q20H IV 04/26/25 15:15 04/26/25 16:40 50 MLS/HR Cefazolin Sodium 50 ml @ 100 mls/hr Q8HR IV 04/26/25 23:00 04/26/25 23:21 100 MLS/HR Acetaminophen/ Hydrocodone Bitart 1 tab Q4HP PRN PO 04/26/25 19:45 Temazepam 15 mg QHSP PRN PO 04/26/25 19:45 Ondansetron HCl 4 mg Q4HP PRN IV 04/26/25 19:45 Acetaminophen 650 mg Q6HP PRN PO 04/26/25 19:45 Nitroglycerin 0.4 mg Q5MINP PRN SL 04/26/25 19:45 Morphine Sulfate 2 mg Q30M PRN IV 04/26/25 20:00 Exam Vital Signs Vital Signs Date Time Temp Pulse Resp B/P (MAP) Pulse Ox O2 Delivery O2 Flow Rate FiO2 04/26/25 22:59 65 17 120/74 (89) 95 04/26/25 22:00 99.1 99.1 04/26/25 16:56 Room Air* 0 21 Exam Gen: 29-year-old female in mild distress Skin: Warm, dry, normal color and texture, no rash. HEENT: Normocephalic atraumatic, mucous membranes moist and pink. Neck: Cervical and supraclavicular nodes normal without enlargement, trachea is midline, thyroid gland is normal without masses. Pulmonary: Clear to auscultation and percussion bilaterally. Cardiac: Regular rate and rhythm. No murmur Abdomen: Soft, nontender, nondistended, bowel sounds present all 4 quadrants, no guarding, no rigidity, no organomegaly. Extremities: No cyanosis, clubbing, plus two bilateral pedal edema. Neuro: Cranial nerves II through XII grossly intact, normal affect and speech, no focal motor deficits. Labs/Xrays Labs Test 04/26/25 15:46 04/26/25 11:43 Range/Units Urine Color Colorless Yellow Urine Clarity Clear Clear Urine pH 7.0 5.0-9.0 Urine Specific [place] 1.005 1.001-1.035 Urine Protein Negative Negative Urine Ketones Negative Negative Urine Blood Negative Negative /uL Urine Nitrite Negative Negative Urine Bilirubin Negative Negative Urine Urobilinogen Normal Negative mg/dL Urine Leukocyte Esterase Negative Negative /uL Urine RBC <1 0 - 4 /hpf Urine Microscopic WBC 0-5 /HPF Urine Squamous Epithelial Cells Few <5 /hpf Urine Bacteria None seen None Seen /hpf Urine Creatinine 19.31 L 30.0-125.0 mg/dL Urine Protein/Creatinine Ratio 0.31 Urine Glucose Normal Normal mg/dL Urine Total Protein < 6.0 1-14 mg/dL White Blood Count 5.7 4.4-10.8 10^3/uL Red Blood Count 3.26 L 4.0-5.20 10^6/uL Hemoglobin 8.5 L 12.2-16.2 g/dL Hematocrit 26.6 L 36.0-46.0 % Mean Corpuscular Volume 81.6 80.0-100.0 fL Mean Corpuscular Hemoglobin 26.0 L 28.0-32.0 pg Mean Corpuscular Hemoglobin Concent 31.8 L 32.0-36.0 g/dL Red Cell Distribution Width 15.8 H 11.8-14.3 % Platelet Count 241 140-450 10^3/uL Mean Platelet Volume 8.1 6.9-10.8 fL Neutrophils (%) (Auto) 69.1 37.0-80.0 % Lymphocytes (%) (Auto) 23.7 10.0-50.0 % Monocytes (%) (Auto) 5.4 0.0-12.0 % Eosinophils (%) (Auto) 1.5 0.0-7.0 % Basophils (%) (Auto) 0.3 0.0-2.0 % Neutrophils # (Auto) 4.0 1.6-8.6 10 ^3/uL Lymphocytes # (Auto) 1.4 0.4-5.4 10 ^3/uL Monocytes # (Auto) 0.3 0-1.3 10 ^3/uL Eosinophils # (Auto) 0.1 0-0.8 10 ^3/uL Basophils # (Auto) 0 0-0.2 10 ^3/uL Nucleated Red Blood Cells 0.1 % Prothrombin Time 11.1 9.3-11.8 sec Prothrombin Time INR 1.05 0.9-1.15 Activated Partial Thromboplast Time 24.4 L 24.5-34.5 SEC Sodium Level 144 136-145 mmol/L Potassium Level 3.6 3.5-5.1 mmol/L Chloride Level 109 H 98-107 mmol/L Carbon Dioxide Level 25 20-31 mmol/L Anion Gap 10 5-15 Blood Urea Nitrogen 15 9-23 mg/dL Creatinine 0.65 0.550-1.02 mg/dL Glomerular Filtration Rate Calc 121 >90 mL/min BUN/Creatinine Ratio 23.1 H 10.0-20.0 Serum Glucose 116 H 74-106 mg/dL Uric Acid 5.3 3.1-7.8 mg/dL Calcium Level 8.2 L 8.7-10.4 mg/dL Magnesium Lvl (Mg Sulfate Therapy) 1.64 L 4.0-7.1 mg/dL Total Bilirubin 0.3 0.2-1.0 mg/dL Aspartate Amino Transferase (AST) 54 H 13-40 U/L Alanine Aminotransferase (ALT) 69 H 7-40 U/L Alkaline Phosphatase 140 H 46-116 U/L Troponin I High Sensitivity < 3 L </=34 ng/L B-Type Natriuretic Peptide 215.63 0-100 pg/mL Total Protein 5.8 5.7-8.2 g/dL Albumin 3.5 3.2-4.8 g/dL Beta HCG, Quantitative 9.3 H 1.5-4.2 mIU/mL SEPSIS Sepsis Screen Date sepsis recognized/suspect: Apr 26, 2025 Time Sepsis recognized/suspect: 1715 Recent Procedure: Yes On Antibiotic Therapy: No Respiratory Rate >20: No Heart Rate >90: No Temp<36 C (96.8 F) or >38.3 C: Yes SBP <90 or MAP <65 mmHG: No New Acute Mental Status Change: No Is the patient on CPAP, BIPAP,: No Physician Orders Regular Diet (04/27/25 Breakfast) Admit (04/26/25 19:33) Hydrocodone-Acet 5/325mg Tab ([place] 5/32 (04/26/25 19:45) Temazepam (Restoril) (04/26/25 19:45) Ondansetron Hcl (Zofran) (04/26/25 19:45) Complete Blood Count (04/27/25 04:00) Comprehensive Metabolic Panel (04/27/25 04:00) Echo 2d Mode Cardiac Dop (04/26/25:33) Condition: Fair (04/26/25:33) Acetaminophen Tablet (Tylenol Tablet) (04/26/25 19:45) Bedrest With Bathroom Privileg (04/26/25:) Nitroglycerin Sublingual (Ntrostat Subli (04/26/25 19:45) Stat Ekg For Chest Pain (04/26/25:33) Notify Md Of Changes From Base (04/26/25:33) Personal Lines Underwriter For 24 Hours (04/26/25:33) Emergency Dysrhythmia Protocol (04/26/25:33) Rhythm Strips Once Every Shift (04/26/25:33) Oxygen By Nasal Cannula (04/26/25:33) Morphine Sulfate Injection (04/26/25 20:00) Vital Signs Date Time Temp Pulse Resp B/P (MAP) Pulse Ox O2 Delivery O2 Flow Rate FiO2 04/26/25 22:59 65 17 120/74 (89) 95 04/26/25 22:00 99.1 81 16 120/74 (89) 95 99.1 04/26/25 21:00 65 29 170/80 (110) 96 04/26/25 20:00 60 23 153/86 (108) 95 04/26/25 19:00 55 19 155/85 (108) 96 04/26/25 18:00 57 21 150/91 (110) 98 04/26/25 17:00 98.8 48 27 148/82 (104) 97 98.8 04/26/25 16:56 48 16 96 Room Air* 0 21 Medications Medications Dose Ordered Sig/Chevy Route Start Time Stop Time Status Last Admin Dose Admin Cefazolin Sodium 50 ml @ 100 mls/hr Q8HR IV 04/26/25 23:00 04/26/25 23:21 100 MLS/HR Cefazolin Sodium/ Dextrose 50 ml @ 50 mls/hr ONCE ONCE IV 04/26/25 15:15 04/26/25 16:14 DC 04/26/25 15:15 50 MLS/HR Lactated Ringer's 1,000 ml @ 75 mls/hr [id number] IV 04/26/25 15:15 04/26/25 16:23 75 MLS/HR Magnesium Sulfate 100 ml @ 300 mls/hr ONCE ONCE IV 04/26/25 15:15 04/26/25 15:46 DC 04/26/25 16:08 300 MLS/HR Magnesium Sulfate 1,000 ml @ 50 mls/hr Q20H IV 04/26/25 15:15 04/26/25 16:40 50 MLS/HR Assessment/Plan Assessment/Plan Assessment preeclampsia Status post Mild transaminitis Mild anemia Plan Admit the patient to telemetry to the hospitalist Echocardiogram pending OBGYN has consulted and placed orders Continue treatment per orders Plan discussed with: Patient My Orders Orders - NACHO MACHADO Procedure Category Date Status Time Regular Diet DIET 04/27/25 Transmitted Breakfast Admit ADMIT 04/26/25 Transmitted 19:33 Hydrocodone-Acet PHA 04/26/25 In Process 5/325mg Tab ([place] 19:45 Temazepam (Restoril) PHA 04/26/25 In Process 19:45 Ondansetron Hcl PHA 04/26/25 In Process (Zofran) 19:45 Complete Blood Count LAB 04/27/25 Logged 04:00 Comprehensive LAB 04/27/25 Logged Metabolic Panel 04:00 Echo 2d Mode Cardiac US 04/26/25 Logged DOP 19:33 Condition: Fair [facility] 04/26/25 In Process 19:33 Acetaminophen Tablet [facility] 04/26/25 In Process (Tylenol Tablet) 19:45 Bedrest With Bathroom [facility] 04/26/25 In Process Privileg 19:33 Nitroglycerin [facility] 04/26/25 In Process Sublingual (Ntrostat 19:45 Stat Ekg For Chest [facility] 04/26/25 In Process Pain 19:33 Notify Md Of Changes [facility] 04/26/25 In Process From Base 19:33 Personal Lines Underwriter For [facility] 04/26/25 In Process 24 Hours 19:33 Emergency Dysrhythmia [facility] 04/26/25 In Process Protocol 19:33 Rhythm Strips Once [facility] 04/26/25 In Process Every Shift 19:33 Oxygen By Nasal RT 04/26/25 Transmitted Cannula 19:33 Morphine Sulfate [facility] 04/26/25 In Process Injection 20:00 Date of Service: Apr 26, 2025 Billing Provider: NACHO MACHADO Common Visit Codes: [id number] INP/OBS CARE (HIGH) NACHO MACHADO Apr 27, 2025 00:35
[2025-04-27] MEDS: ACETAMINOPHEN 325 MG TAB PO PRN (05:12)
[2025-04-27 06:00] LABS: Hemoglobin 9.0 g/dL (12.2-16.2)
[2025-04-27 06:05] LABS: Hematocrit 27.9 % (36.0-46.0); Mean Corpuscular Hemoglobin 26.8 pg (28.0-32.0); Mean Corpuscular Volume 83.6 fL (80.0-100.0); Nucleated Red Blood Cells % 0.1 %
[2025-04-27] MEDS: HYDROcodone-ACET 5/325MG TAB PO PRN (06:20)
[2025-04-27 06:22] LABS: Anion Gap 10 (5-15); BUN/Creatinine Ratio 10.9 (10.0-20.0); Carbon Dioxide 24 mmol/L (20-31); Glucose 96 mg/dL (74-106); Sodium 143 mmol/L (136-145); Total Protein 5.8 g/dL (5.7-8.2)
[2025-04-27 06:23] LABS: Albumin 3.4 g/dL (3.2-4.8); Bilirubin, Total 0.4 mg/dL (0.2-1.0)
[2025-04-27 06:30] LABS: Alanine Aminotransferase 115 U/L (7-40); Alkaline Phosphatase 142 U/L (46-116); Blood Urea Nitrogen 6 mg/dL (9-23); Calcium 7.2 mg/dL (8.7-10.4); Chloride 109 mmol/L (98-107); Potassium 3.3 mmol/L (3.5-5.1)
--- NOTE | 2025-04-27 10:25 | DVHPN2 ---
Chief Complaints Patient reports: No new complaints, Feels better Nursing reports: No new complaints Objective Vitals Vital Signs Date Time Temp Pulse Resp B/P (MAP) Pulse Ox O2 Delivery O2 Flow Rate FiO2 04/27/25 06:57 74 17 114/70 (85) 93 04/26/25 22:00 99.1 99.1 04/26/25 16:56 Room Air* 0 21 Medications Current Medications Medications (Trade) Dose Ordered Sig/Chevy Route PRN Reason Start Time Stop Time Status Last Admin Acetaminophen (Tylenol Tablet) 650 mg Q6HP PRN PO PAIN SCALE 1-3 OR TEMP>100.4 04/26/25 19:45 04/27/25 05:12 Acetaminophen/ Hydrocodone Bitart ([place] 5/325MG Tab) 1 tab Q4HP PRN PO MODERATE PAIN (4-6 PAIN SCALE) 04/26/25 19:45 04/27/25 06:20 Cefazolin Sodium 50 ml @ 100 mls/hr Q8HR IV 04/26/25 23:00 04/27/25 05:31 Lactated Ringer's 1,000 ml @ 75 mls/hr [id number] IV 04/26/25 15:15 04/27/25 05:22 Magnesium Sulfate 1,000 ml @ 50 mls/hr Q20H IV 04/26/25 15:15 04/27/25 09:54 Morphine Sulfate 2 mg Q30M PRN IV FOR CHEST PAIN 04/26/25 20:00 Nitroglycerin (Ntrostat Sublingual) 0.4 mg Q5MINP PRN SL FOR CHEST PAIN 04/26/25 19:45 Ondansetron HCl (Zofran) 4 mg Q4HP PRN IV NAUSEA / VOMITING 04/26/25 19:45 Temazepam (Restoril) 15 mg QHSP PRN PO FOR INSOMNIA 04/26/25 19:45 Lungs: Normal Cardiovascular: Normal Abdominal: Soft Extremities: Normal Studies Laboratory Tests 04/27/25 04:34 Test 04/27/25 04:34 Range/Units Serum Glucose 96 74-106 mg/dL Ass/Plan Assessment preeclampsia on mg stable Plan monitor mg level,repeat cmp mg for 24hrs await echo Visit Coding OBGYN Date of Service: Apr 27, 2025 Billing Provider: WILBER MOREJON DO FLARING MACHINE OPERATOR Common Visit Codes: [id number] INP/OBS CARE(HIGH) WILBER MOREJON DO Apr 27, 2025 10:25
[2025-04-27 14:11] LABS: Albumin 3.5 g/dL (3.2-4.8); Anion Gap 10 (5-15); BUN/Creatinine Ratio 11.3 (10.0-20.0); Bilirubin, Total 0.3 mg/dL (0.2-1.0); Carbon Dioxide 25 mmol/L (20-31); Glucose 102 mg/dL (74-106); Potassium 3.5 mmol/L (3.5-5.1); Sodium 143 mmol/L (136-145); Total Protein 5.7 g/dL (5.7-8.2); Uric Acid 5.3 mg/dL (3.1-7.8)
[2025-04-27 14:15] LABS: Alanine Aminotransferase 121 U/L (7-40); Alkaline Phosphatase 143 U/L (46-116); Blood Urea Nitrogen 6 mg/dL (9-23); Calcium 6.9 mg/dL (8.7-10.4); Chloride 108 mmol/L (98-107)
[2025-04-28] VITALS (11 sets, daily range): BP systolic 114–150; BP diastolic 62–85; PULSE 55–82; RESP 16–18; TEMP 98.1–98.9; O2SAT 94–98
[2025-04-28 06:11] LABS: Alanine Aminotransferase 84 U/L (7-40); Albumin 3.3 g/dL (3.2-4.8); Alkaline Phosphatase 129 U/L (46-116); Anion Gap 10 (5-15); BUN/Creatinine Ratio 10.5 (10.0-20.0); Bilirubin, Total 0.4 mg/dL (0.2-1.0); Blood Urea Nitrogen 6 mg/dL (9-23); Calcium 6.9 mg/dL (8.7-10.4); Carbon Dioxide 26 mmol/L (20-31); Chloride 107 mmol/L (98-107); Glucose 89 mg/dL (74-106); Potassium 3.4 mmol/L (3.5-5.1); Sodium 143 mmol/L (136-145); Total Protein 5.7 g/dL (5.7-8.2)
--- NOTE | 2025-04-28 06:54 | DVHPN2 ---
Chief Complaints Patient reports: No new complaints, Feels better Nursing reports: No new complaints Objective Vitals Vital Signs Date Time Temp Pulse Resp B/P (MAP) Pulse Ox O2 Delivery O2 Flow Rate FiO2 04/28/25 05:00 98.6 60 16 150/84 (106) 94 98.6 04/27/25 20:00 Room Air* 0 21 Lungs: Normal Cardiovascular: Normal Abdominal: Soft Extremities: Normal Studies Laboratory Tests 04/28/25 05:24 04/27/25 04:34 Test 04/28/25 05:24 Range/Units Serum Glucose 89 74-106 mg/dL Ass/Plan Assessment preeclampsia recieved mgx24 hrs stable Plan supportive care Visit Coding OBGYN Date of Service: Apr 28, 2025 Billing Provider: WILBER MOREJON DO GRAINING OPERATOR Common Visit Codes: [id number] INP/OBS CARE(HIGH) WILBER MOREJON DO Apr 28, 2025 06:54
--- NOTE | 2025-04-28 11:15 | DVHSR ---
APPROVED REPORT EXAM: Two-dimensional and M-mode echocardiogram with Doppler and color Doppler. Blood Pressure: 114/70 mmHg INDICATION Preeclampsia RISK FACTORS Obesity: Height: 5' 7", Weight: 223 DIMENSIONS LVDd5.0 (3.8-5.7cm)LA (2D)4.0 (1.9-4.0cm)Aortic Root (2.0-3.7cm) LVDs3.5 (2.5-4.0cm)LA (MM) (1.9-4.0cm)Aortic Cusp Exc (1.5-2.0cm) EF (%) 57.4 (55-70%)Rt. Atrium4.0 (1.9-4.0cm)Asc. Aorta cm IVSd0.9 (0.7-1.1cm)RV (D) (1.8-2.4cm) PWd1.0 (0.7-1.1cm) Mitral Valve MitralMitral Stenosis E wave1.41m/sMV Mean GR.mmHg A wave0.92m/sMV Peak GR.41mmHg E/A ratio1.52D MVAcm2 DECEL [id number] 1/2 Tim[place] Aortic Valve Aortic ValveAortic Stenosis V10.66m/Bora Mean GR.4mmHg V21.44m/Bora Peak GR.8mmHg LVOT Diameter2.1 (1.8-2.4cm)Doppler AVA1.59cm2 Pulmonic Valve V20.62m/s Tricuspid Valve TR Velocity2.38m/s [id number] Conclusion Sinus rhythm. Biatrial enlargement. Valves are normal. EF of 55% with normal RV function. Mild MR. Mild TR. RVSP of25 mmHg. No pericardial effusion masses or vegetations.
--- NOTE | 2025-04-28 12:05 | DVHDS2 ---
Physician Discharge Progress N Final Diagnosis: preeclampsia resolved Operations or Procedures: Operations or Procedures echo,labs Condition on Discharge: Good Disposition: Home Discharge Instructions: Diet: Regular Activity: Light activity Medications: labetololo Follow Up Care: Specialist: 1w Discharge Statement: "Patient was advised to return to the ER or call 911 if any headaches, dizziness, shortness of breath, chest pain, abdominal pain, bleeding, fevers, or worsening of medical condition. Patient was counseled about treatment plan, medications, possible side effects, patientverbalized understanding. All questions were answered to the best of my ability. This discharge took greater then 30 minutes in planning, reviewing documentat ion, counseling the patient, and discussing with other team members." Visit Coding OBGYN Date of Service: Apr 28, 2025 Billing Provider: WILBER MOREJON DO KILN DRAWER Common Visit Codes: [id number] OBS CARE (HIGH) WILBER MOREJON DO Apr 28, 2025 12:05
== END 2025-04-28 16:10 | disposition home or self-care (01) | DRG 561 ==
LOC: ER 11:06 → OVERFLOW 19:33 → TELE-EAST 04-27 18:57
PROVIDERS: ADMIT Obstetrics & Gynecology; ATTEND Obstetrics & Gynecology
DX: O14.95 Unspecified pre-eclampsia, complicating the puerperium (principal); O90.81 Anemia of the puerperium; R74.01 Elevation of levels of liver transaminase levels; Z82.49 Family history of ischemic heart disease and other diseases of the circulatory system; Z86.32 Personal history of gestational diabetes; Z79.1 Long term (current) use of non-steroidal anti-inflammatories (NSAID); Z79.84 Long term (current) use of oral hypoglycemic drugs; Z98.891 History of uterine scar from previous surgery; Z79.899 Other long term (current) drug therapy
CPT/HCPCS: 36415; 80053; 81001; 82570; 83735; 83880; 84156; 84484; 84550; 84702; 85025; 85610; 85730; 93306; 96365; 99291; G0378